=== PATIENT | female | born 1980 | race Caucasian/White ===

== ENCOUNTER → 2017-02-17 10:16 | Outpatient (CLI) | payer OTHER, SELFPAY ==
[2017-02-17 10:39] LABS: Basophils # 0.1 K/mm3 (0-0.2); Basophils % 0.8 % (0.1-2.0); Eosinophils # 0.3 K/mm3 (0.0-0.4); Eosinophils % 2.2 % (0.1-12.0); Hematocrit 46.2 % (37.0-47.0); Lymphocytes # 4.2 K/mm3 (0.7-4.5); Lymphocytes % 36.5 K/mm3 (10-50); Mean Corpuscular HGB Conc 32.6 g/dL (31.8-35.4); Mean Corpuscular Hemoglobin 30.1 pg (27.0-31.2); Mean Corpuscular Volume 92.5 fl (81-99); Monocytes # 0.5 K/mm3 (0.1-1.0); Monocytes % 4.2 % (1.7-9.3); Neutrophils # 6.5 K/mm3 (1.8-7.8); Neutrophils % 56.3 % (37.0-80.0); Platelet Count 354 K/mm3 (142-424); Red Blood Count 4.99 M/mm3 (4.20-5.40); Red Cell Distribution Width 12.7 % (11.5-17.5); White Blood Count 11.6 K/mm3 (4.8-10.8)
[2017-02-17 12:37] LABS: Anion Gap 12.1 mEq/L (5-15); Blood Urea Nitrogen 10 mg/dL (7-18); Carbon Dioxide 29 mmol/L (21.0-32.0); Chloride 105 mmol/L (98-107); Creatinine,Serum 0.94 mg/dL (0.55-1.02); Estimated Glomerular Filt Rate > 60 ml/min (>60); GFR (African American) > 60 ML/MIN (>60); Glucose 90 mg/dL (74-106); Potassium 5.1 mmoL/L (3.5-5.1); Sodium 141 mmol/L (136-145)
== END ==
PROVIDERS: PCP Surgery; Visit Provider Surgery
DX: K43.2 Incisional hernia without obstruction or gangrene (principal)
CPT/HCPCS: 36415; 80048; 85025

== ENCOUNTER 2017-02-18 13:40 | Inpatient (IN) | payer OTHER, SELFPAY ==
[2017-02-18] VITALS (22 sets, daily range): BP systolic 109–153; BP diastolic 58–80; PULSE 61–89; RESP 16–18; TEMP 36.4–43; O2SAT 95–100; BMI 35.6
--- NOTE | 2017-02-18 08:32 | HMH.ANESCL ---
[facility] Anesthesia Checklist - Structural Data Admitted From: Home Planned Operative Procedure/s: lap hernia repair Consent for Planned Operative Procedure(s) Verified: Yes - NPO Status Verified Time NPO: 12:00 - Chart Verification Results Verified: CBC - Additional verifications Patient : No Anesthesia Reactions: No - Airway Assessment C-Spine Mobility Assessed: Yes TMJ Mobility Assessed: Yes (small opening) Dentition: Good Dentition - Neurological Assessment Level of Consciousness: Awake, Alert Hx Seizures: No Numbness or tingling in extremities: No - Psychosocial Assessment Concerns Regarding Surgery: pt had large blood loss w last surgery, talked w her about that - Anesthesia Plan Anesthesia Risk discussed: Yes Anesthesia Plan: Verified ASA Class: II Anesthesia Type: General - Preoperative Comments Pre-Operative Comments: pt very nervous due to complication w last surgery [facility] Anesthesia HX I have reviewed the patient's past medical history: Yes Medical History: Reports:: Kidney Stones Denies:: Diabetes Mellitus Type 1, Diabetes Mellitus Type 2, Seizures Other Medical History: Denies: Blood Transfusion Reaction Other Surgeries: Yes: , Hysterectomy-Total, Hysterectomy-Partial, Tubal Ligation Amputation: No Fractures: No *Family Hx:: Cancer, Hypertension
--- NOTE | 2017-02-18 08:35 | P.PN_ITS ---
[facility] Anesthesia Checklist - Structural Data Admitted From: Home Planned Operative Procedure/s: lap hernia repair Consent for Planned Operative Procedure(s) Verified: Yes - NPO Status Verified Time NPO: 12:00 - Chart Verification Results Verified: CBC - Additional verifications Patient : No Anesthesia Reactions: No - Airway Assessment C-Spine Mobility Assessed: Yes TMJ Mobility Assessed: Yes (small opening) Dentition: Good Dentition - Neurological Assessment Level of Consciousness: Awake, Alert Hx Seizures: No Numbness or tingling in extremities: No - Psychosocial Assessment Concerns Regarding Surgery: pt had large blood loss w last surgery, talked w her about that - Anesthesia Plan Anesthesia Risk discussed: Yes Anesthesia Plan: Verified ASA Class: II Anesthesia Type: General - Preoperative Comments Pre-Operative Comments: pt very nervous due to complication w last surgery [facility] Anesthesia HX I have reviewed the patient's past medical history: Yes Medical History: Reports:: Kidney Stones Denies:: Diabetes Mellitus Type 1, Diabetes Mellitus Type 2, Seizures Other Medical History: Denies: Blood Transfusion Reaction Other Surgeries: Yes: , Hysterectomy-Total, Hysterectomy-Partial, Tubal Ligation Amputation: No Fractures: No *Family Hx:: Cancer, Hypertension
--- NOTE | 2017-02-18 11:10 | SUR.OPER ---
Addendum entered by Hamida Marinelil RN 02/18/17 14:41: 1240-FAMILY UPDATED PER HEENA CHE Original Note: Addendum entered by Hamida Marinelli RN 02/18/17 14:39: 1207-MD BEGAN SMALL BOWEL RESECTION PROCEDURE AT THIS TIME. FAMILY NOTIFIED AND CONSENT UPDATED PER HEENA NAVA. ALL COUNTS VERIFIED AND CORRECT PER HEENA MUNOZ AND YAEL,MICROFILMER. Original Note: Addendum entered by Hamida Marinelli RN 02/18/17 11:39: 1124-FAMILY UPDATED AT THIS TIME PER HEENA CHE Original Note: 1046-MD CONVERTED TO OPEN INCISIONAL HERNIA REPAIR. COUNTS VERIFIED AND CORRECT PER HEENA MUNOZ AND YAEL,MICROFILMER. 1103-FAMILY UPDATED AT THIS TIME PER HEENA CHE
--- NOTE | 2017-02-18 13:32 | P.PN_ITS ---
[facility] Anesthesia Record Part I Intake, IV Amount: 2,500 Estimated blood loss (mL): 75 Urine output (mL): 250 Blood Pressure: 145/79 SaO2: 95 Pulse Rate: 81 Respiratory Rate: 16 Temperature: 97.8 F Patient is:: Drowsy, Nasal O2, Stable Stable to PACU at:: 13:25
--- NOTE | 2017-02-18 13:33 | HMH.ANESII ---
[facility] Anesthesia Record Part II Discharge Time: 13:55 Destination: 2nd floor PACU nurse assessment reviewed?: Yes Patient Condition:: Good Anesthesia Complications:: None
--- NOTE | 2017-02-18 13:38 | HMH.OPNOTE ---
Date of procedure: 02/18/17 Pre-op Diagnosis:: Left lower quadrant abdominal wall hernia Post-op diagnosis:: same Procedure performed:: 1. Diagnostic laparoscopy 2. Small bowel resection 3. Primary repair of abdominal wall hernia Surgeon:: Jose Ramon Cross MD Career And Guidance Counselor(s):: Rosemarie Donnelly Anesthesia: IRA Estimated blood loss (mL): 75 Clinical Note:: Patient is a 36-year-old white female. In August 2015 she had undergone left oophorectomy. Patient states that she had postoperative bleeding and had to return to the operating room at which time she underwent emergent laparotomy Via Pfannenstiel incision for postoperative bleeding. For about the past 4-5 months near the left side of her incision she had signs and symptoms consistent with probable hernia. She described a bulge which had increased in size. She described discomfort. She was recently sent for surgical consultation for presumed incisional hernia and in the office patient had a definite hernia underlying the left lateral aspect of her scar. It was difficult to determine the exact size and character as well as nature and contents of the hernia and I had her undergo CT scan which revealed findings of hernia in the left lower abdomen containing a loop of small bowel without obstruction. It appeared as though the size of the defect measured 4-6 cm. The options were discussed with the patient. She wished to pursue surgical repair. Plan was made for attempted laparoscopic repair with possible open procedure. Operative findings:: Patient had approximately a 5 cm defect in the left lower abdominal wall. She had a couple of loops of small bowel which was incredibly densely adherent to the peritoneum and musculature within the hernia sac. Operative note:: Consent was obtained and patient was taken to the operating room. She was positioned in a supine position. General anesthesia was induced via endotracheal tube. Her abdomen was prepped and draped in the standard surgical fashion. 5 mm left subcostal incision was made and trocar was inserted under laparoscopic visualization as an optical Veress needle. CO2 pneumoperitoneum was then achieved to 15 mmHg. Intraperitoneal contents were visualized. She has some adhesions in the lower abdomen mostly consisting of omentum. 10 mm trocar was inserted in the right upper abdomen under laparoscopic visualization. Ultimately for visualization and dissection of the hernia a couple of additional 5 mm trochars were inserted in the right lower abdomen and suprapubic location. Prolonged dissection carried out taking down omental adhesions from the anterior abdominal wall using laparoscopic Metzenbaum dissection with some blunt dissection. Hernia defect was then encountered the left lower quadrant. However, there were there are 2 loops of small bowel densely adherent to the hernia sac and musculature of the abdominal wall. The small bowel was so densely adherent it was difficult to delineate between the boundary of the small bowel and abdominal wall. Due to concern for possible bowel injury and due to lack of any progressive dissection of the small bowel this was made to convert to an open procedure. Incision was made in the left lower quadrant and the previous surgical scar with elliptical excision of the widened portion of the scar which had some palpable nodularity consistent with scar and fibrosis. The skin ellipse and scar was excised and it was sent with the hernia sac specimen ultimately. Peritoneal cavity was entered. There was very densely adherent small bowel to the hernia sac and abdominal wall musculature within the region of the hernia. Dissection was very difficult due to the profound dense adhesions involving the small bowel. Prolonged careful dissection was performed using Metzenbaum dissection ultimately freeing the small bowel from its attachments to the anterior abdominal wall. However, small bowel appeared somewhat devitalized
[2017-02-18 15:23] LABS: Microscopic,Cath URINE MICROSCOPIC (MICROSCOPIC)
--- NOTE | 2017-02-18 15:37 | PC.NURSE ---
Addendum entered by Genia Mancilla RN 02/18/17 15:44: 02/18/17 While in PACU, pt received Dilaudid 0.5mg IV at 1353 for c/o abd pain rated 10/10. Pt received Dilaudid 0.5mg IV at 1402 for c/o abd pain rated 5/10. Original Note: 02/18/17 1405 Pt O2 room air sat check stable at mid 90's. O2 reapplied for comfort and due to fact pt receiving pain meds.
--- NOTE | 2017-02-18 15:41 | SUR.PHASEI ---
02/18/17 1425 Pt transported to Room 201 2nd floor med/surg per HEENA Grubbs and Phil,HEENA. Pt talking with staff and family during transfer/stable. Pain controlled 04/25. Pt left in care of HEENA Melendez at bedside/stable.
[2017-02-18 15:44] LABS: Appearance,Urine/Cath CLEAR (Clear); Bilirubin,Cath Negative (Negative); Blood, Urine/Cath Negative (Negative); Color,Urine/Cath YELLOW (Yellow); Glucose,Urine/Cath (UA) Negative (Negative); Ketones,Urine/Cath Negative (Negative); Leukocyte Esterase,Cath Negative (Negative); Nitrate,Cath Negative (Negative); PH,Urine/Cath 5.5 (5.0-8.5); Protein,Urine/Cath Negative (Negative); Specific Gravity, Urine/Cath 1.025 (1.005-1.030); Urobilinogen,Cath 0.2 EU/dl (0.2)
[2017-02-18 17:02] LABS: Bacteria,Urine/Cath TRACE /lpf; Squamous Epithelial Ur./Cath Occasional #/hpf (0-5)
[2017-02-19] VITALS (7 sets, daily range): BP systolic 132–175; BP diastolic 75–94; PULSE 74–93; RESP 16–20; TEMP 36.7–37.2; O2SAT 95–98
[2017-02-19 07:01] LABS: Basophils % 0.2 % (0.1-2.0); Eosinophils # 0.1 K/mm3 (0.0-0.4); Eosinophils % 0.5 % (0.1-12.0); Hematocrit 38.5 % (37.0-47.0); Hemoglobin 12.2 g/dL (12.2-16.2); Lymphocytes # 2.7 K/mm3 (0.7-4.5); Lymphocytes % 18.2 K/mm3 (10-50); Mean Corpuscular HGB Conc 31.7 g/dL (31.8-35.4); Mean Corpuscular Hemoglobin 29.1 pg (27.0-31.2); Mean Corpuscular Volume 91.9 fl (81-99); Mean Platelet Volume 8.4 fl (7.4-10.4); Monocytes # 0.8 K/mm3 (0.1-1.0); Monocytes % 5.2 % (1.7-9.3); Neutrophils # 11.1 K/mm3 (1.8-7.8); Neutrophils % 75.9 % (37.0-80.0); Platelet Count 269 K/mm3 (142-424); Red Blood Count 4.19 M/mm3 (4.20-5.40); Red Cell Distribution Width 12.9 % (11.5-17.5); White Blood Count 14.7 K/mm3 (4.8-10.8)
[2017-02-19 07:07] LABS: Anion Gap 7.8 mEq/L (5-15); Blood Urea Nitrogen 9 mg/dL (7-18); Carbon Dioxide 29 mmol/L (21.0-32.0); Chloride 106 mmol/L (98-107); Creatinine Clearance Estimated 142 mg/ml (0-300); Estimated Glomerular Filt Rate > 60 ml/min (>60); GFR (African American) > 60 ML/MIN (>60); Glucose 102 mg/dL (74-106); Potassium 3.8 mmoL/L (3.5-5.1); Sodium 139 mmol/L (136-145)
--- NOTE | 2017-02-19 08:25 | P.PN_ITS ---
Internal Medicine - PN: Subj *Date: 02/19/17 *Time: 08:22 Interval history: Patient complains of abdominal pain. Had some heartburn. PPI added. No nausea. Exam Vital signs and Labs for Last 24 Hours: Temp Pulse Resp BP Pulse Ox 98.2 F 83 20 150/86 95 02/19/17 07:39 02/19/17 07:39 02/19/17 07:39 02/19/17 07:39 02/19/17 07:39 Short CBC 02/19/17 Range/Units 06:10 WBC 14.7 H D (4.8-10.8) K/mm3 Hgb 12.2 (12.2-16.2) g/dL Hct 38.5 (37.0-47.0) % Plt Count 269 (142-424) K/mm3 BMP 02/19/17 06:10 Sodium 139 Potassium 3.8 D Chloride 106 Carbon Dioxide 29 BUN 9 Creatinine 0.80 Glucose 102 Urine 02/18/17 Range/Units 09:58 Urine Color Yellow (Yellow) Urine Appearance Clear (Clear) Urine pH 5.5 (5.0-8.5) Ur Specific [place] 1.025 (1.005-1.030) Urine Protein Negative (Negative) Urine Glucose (UA) Negative (Negative) I & O for Last 24 hours: Intake & Output 02/16/17 02/17/17 02/18/17 02/19/17 11:59 11:59 11:59 11:59 Intake Total 2650 / 2650 Output Total 2170 / 2170 Balance 480 / 480 - *Routine Abdominal Exam Present: soft, normoactive bowel sounds, tenderness, surgical scars Assessment and Plan (1) Ventral hernia Current visit: Yes Status: Acute Category: Surgical Code(s): K43.9 - Ventral hernia without obstruction or gangrene Continue NG for now. Some active appreciable output. DC Hazel catheter. Will add scheduled Toradol for pain.
--- NOTE | 2017-02-19 10:10 | HMH.PHAVTE ---
[facility] Pharmacy VTE Monitoring - Patient Demographics Admission date: 02/18/17 Report Date: 02/19/17 Time: 10:10 Allergies/Adverse Reactions: Sulfa (Sulfonamide Antibiotics) Adverse Reaction (Mild, Verified 02/18/17 07:38) NA-NAUSEA/VOMITING Height: 1.63 m Weight: 94.092 kg Patient Problems: Current Active Problems Ventral hernia (Acute) - VTE Risk Labs: VTE Related Lab Results Hgb 12.2 g/dL (12.2-16.2) 02/19/17 06:10 Hct 38.5 % (37.0-47.0) 02/19/17 06:10 Plt Count 269 K/mm3 (142-424) 02/19/17 06:10 BUN 9 mg/dL (7-18) 02/19/17 06:10 Creatinine 0.80 mg/dL (0.55-1.02) 02/19/17 06:10 Estimated Creat Clear 142 mg/ml (0-300) 02/19/17 06:10 VTE Score: 2 VTE Risk Level: Low Risk - Prophylaxis VTE Prophylaxis Ordered?: Yes Types of VTE Prophylaxis: TEDS Knee High Location of Applied Device: Bilateral Lower Extremeties
--- NOTE | 2017-02-19 16:09 | PC.NURSE ---
Respiration even and non labored. Lungs clear, bowel sounds normal. Shadowing noted to abd incisions but no change from am assessment. NG to low wall suction. Patent and draining brown liquid. Pt reports lower abd pain that is relieved with administration of prn pain meds. Will continue to monitor.
[2017-02-20] VITALS: BP 185/109; PULSE 99; RESP 14; TEMP 36.6; O2SAT 94
--- NOTE | 2017-02-20 02:43 | PC.NURSE ---
PATIENT IS LAYING IN BED AT THIS TIME WITH SPOUSE AT BEDSIDE. HAS ONLY SLEPT FOR ABOUT AN HOUR. HAS ASK FOR PAIN MEDICATION TO BE GIVEN ALESSANDRA WITH ALL PAIN MEDS. IS ON CONTINUOUS LOW WALL SUCTION. DENIES ANY NAUSEA. STATES HAS HEARTBURN AT TIMES. BOWEL SOUNDS ARE HYPOACTIVE. LUNGS ARE CLEAR, RESP EVEN AND NONLABORED. EDUCATED PATIENT ON IMPORTANCE OF MOVING AROUND TO PREVENT PNEUMONIA AND CLOTS.VERBALIZED UNDERSTANDING. ALSO EDUCATED ON IMPORTANCE OF TRYING TO WEAN OFF SOME PAIN MEDS. HAS SCUDS ON AT THIS TIME. IV IS PATENT. BED LOCKED IN LOW POSITION, SIDE RALES UP X 2, CALL LIGHT WITHIN REACH. WILL CONTINUE TO MONITOR.
--- NOTE | 2017-02-20 03:54 | PC.NURSE ---
BP WAS ELEVATED 185/109. IS ON A SCHEDULED LISINOPRIL. STATES SHE IS IN SOME PAIN IN ABDOMEN.. WILL DISCUSS WITH MD ON A.M ROUNDS.
[2017-02-20 04:00] VITALS: BP 185/109; PULSE 99; RESP 16; TEMP 36.6; O2SAT 94
--- NOTE | 2017-02-20 07:42 | HMH.GSPN ---
Subjective Patient reports: no new complaints, still having pain (Patient still having some pain. Passing flatus. No nausea.), flatus Exam Vital signs and Labs for Last 24 Hours: Temp Pulse Resp BP Pulse Ox 97.9 F 99 H 16 185/109 94 L 02/20/17 04:00 02/20/17 04:00 02/20/17 04:00 02/20/17 04:00 02/20/17 04:00 BMP 02/19/17 06:10 Sodium 139 Potassium 3.8 D Chloride 106 Carbon Dioxide 29 BUN 9 Creatinine 0.80 Glucose 102 I & O for Last 24 hours: Intake & Output 02/17/17 02/18/17 02/19/17 02/20/17 11:59 11:59 11:59 11:59 Intake Total 3650 / 3650 4189 / 4189 Output Total 2170 / 2170 1650 / 1650 Balance 1480 / 1480 2539 / 2539 - *Routine Abdominal Exam Present: soft, tenderness, surgical scars Progress Note: A&P (1) Ventral hernia Status: Acute Assessment and plan: Will clamp NG tube. If no nausea after several hours and no major residual will DC NG later. Encourage ambulation. Current Visit: Yes
[2017-02-20 08:30] VITALS: BP 175/101; PULSE 94; RESP 22; TEMP 36.8
--- NOTE | 2017-02-20 08:57 | PC.NURSE ---
rn notified about high bp
--- NOTE | 2017-02-20 11:47 | PC.NURSE ---
PT RESTING IN CHAIR, NG TUBE PULLED, PT TOLERATED WELL. AMBULATED PT TO RESTROOM PT STATED THAT SHE FELT OK WHILE AMBULATING. REASSESSED PT PAIN SHE NOW STATES THAT HER PAIN IS A 6 ON ACID CONDITIONER AND BEFORE WAS AN 8 BUT SAYS THAT THE PAIN MEDICATION SHE HAS BEEN GIVEN IS NOT HELPING. STATES THAT THE DILUIDID THAT SHE GOT EARLIER WAS THE BEST THAT HELPED, IT LASTED LONGER AND HELPED HER TO REST BETTER. STATES THAT HE DOESNT UNDERSTAND WHY THE SCHEDULE OF HER PAIN MEDICINE HAS GOTTEN OFF SCHEDULE, DISCUSSED WITH PT THAT SHE DOESNT HAVE ANY SCHEDULED PAIN MEDICINE OTHER THAN TORADOL, DISCUSSED WITH MD ERNESTO MD WILL CHANGE MEDICINE TO DILUADID 0.5 MG FOR BREAK THROUGH PAIN NEEDED.
[2017-02-20 16:00] VITALS: BP 129/86; PULSE 83; RESP 18; TEMP 36.6; O2SAT 95
--- NOTE | 2017-02-20 19:02 | PC.NURSE ---
Pt resting in bed, states that diluadid does relieve her pain to around 5. Ambulating to and from bathroom with sb assistance. ice chips at bedside. pt denies any heartburn or nausea at this time. Will continue to monitor
[2017-02-20 19:40] VITALS: BP 140/87; PULSE 92; RESP 18; TEMP 37; O2SAT 99
--- NOTE | 2017-02-21 03:51 | PC.NURSE ---
C/O PAIN IN LLQ OF ABDOMEN, MEDICATED PER APR, ON REASSESSMENT FOLLOWING ADMINISTRATION PT NOTED RESTING IN BED WITHOUT ANY FURTHER COMPLAINTS. ON 299 ROUND, SCHEDULED TORADOL WAS DUE AND PT ALSO ASKED FOR PRN DILAUDID. RN EXPLAINED TO PT, LETS TRY THE TORADOL AND THEN IF YOU NEED ADDITIONAL PAIN MEDICATION, WE HAVE OTHER PAIN MEDICATIONS AVAILABLE TO ADMINISTER IF THE SCHEDULED TORADOL DOES NOT WORK. PT REPLIED, I DO NOT WANT TO DO THAT. THE TORADOL DOES NOT HELP ME, THE DILAUDID IS WHAT HELPS ME AND MY PAIN IS AT AN 8 RIGHT NOW. 4 DRESSINGS NOTED ON ABDOMEN. RLQ ABDOMINAL DRESSING NOTED WITH MINIMAL DRIED BLOOD AND THE REMAINING DRESSINGS NOTED CDI. DRESSING ON RLQ CHANGED WITH TELFA AND TEGADERM. ABDOMEN NONDISTENDED, BOWEL SOUNDS HYPERACTIVE IN ALL QUADS, SOFT AND TENDER NOTED IN LLQ. TOLERATED SIPS/ICE CHIPS DIET WELL, PT STATED I CAN'T WAIT TO GET SOMETHING ELSE TO EAT BESIDES ICE/WATER. NO STOOL NOTED, LAST STATED BM THURSDAY AMBULATED IN ROOM INDEPENDENTLY FOR TOILETING PURPOSES, TOLERATED WELL. VSS. WILL CONTINUE TO MONITOR.
[2017-02-21 04:30] VITALS: BP 120/75; PULSE 88; RESP 16; TEMP 36.5; O2SAT 97
--- NOTE | 2017-02-21 07:19 | PC.NURSE ---
Report given to Harrison Gamino WC/SRNA
[2017-02-21 08:00] VITALS: BP 149/95; PULSE 77; RESP 18; TEMP 36.4; O2SAT 98
--- NOTE | 2017-02-21 08:58 | HMH.GSPN ---
Subjective Patient reports: no new complaints, feels better, flatus Narrative: Patient feels much better with NG out. Still passing flatus. No bowel movement. No nausea. Exam Vital signs and Labs for Last 24 Hours: Temp Pulse Resp BP Pulse Ox 97.6 F 77 18 149/95 98 02/21/17 08:00 02/21/17 08:00 02/21/17 08:00 02/21/17 08:00 02/21/17 08:00 I & O for Last 24 hours: Intake & Output 02/18/17 02/19/17 02/20/17 02/21/17 11:59 11:59 11:59 11:59 Intake Total 3650 / 3650 5999 / 5999 3204 / 3204 Output Total 2170 / 2170 1650 / 1650 1200 / 1200 Balance 1480 / 1480 4349 / 4349 2003 / 2003 - *Routine Abdominal Exam Present: soft, tenderness Comments: Incisions clean. Mild to moderate incisional tenderness at the hernia site without recurrence. Progress Note: A&P (1) Ventral hernia Status: Acute Assessment and plan: Will give patient limited sips of clear liquids without carbonated beverages at this time. Recheck labs tomorrow morning. I counseled the patient once again on the appreciable likelihood of future hernia recurrence due to need for primary closure without mesh placement. I also counseled her on smoking cessation to minimize possibility of future hernia recurrence. Current Visit: Yes
[2017-02-21 16:15] VITALS: BP 161/93; PULSE 75; RESP 16; TEMP 36.9; O2SAT 99
--- NOTE | 2017-02-21 17:02 | PC.NURSE ---
1702 - PT HAS BEEN A&Ox3 THIS SHIFT. LLQ ABDOMINAL PAIN RANGES FROM 4 - 7 AND MEDICATED WITH PRN DILAUDID AND LORATAB PER APR. GOAL FOR PAIN MANAGEMENT IS 4 OR BELOW. PT HAS AMBULATED TO BR /S ASSISTANCE. NO BM THIS SHIFT OF THIS DOCUMENTATION. BOWEL SOUNDS PRESENT X4 QUADS. PT DENIES DIFFICULTY /C URINATION. IV INFUSING /S DIFFICULTY VIA (R) AC SITE. NO S/S OF INFECTION/INFILTRATION NOTED. PT HAS TOLERATED PO JUICE AND JELLO /S N/V. WILL CONTINUE TO MONITOR.
[2017-02-21 20:19] VITALS: BP 142/94; PULSE 74; RESP 18; TEMP 36.5; O2SAT 97
[2017-02-22 04:00] VITALS: BP 138/74; PULSE 75; RESP 18; TEMP 36.6; O2SAT 97
--- NOTE | 2017-02-22 06:17 | PC.NURSE ---
C/O PAIN MOST OF THE NIGHT R/T INCISION. 5 INCISIONS NOTED TO ABD, AMIRA INACT, NO S/S OF INFECTION NOTED. LUNG SOUNDS CLEAR, BS ACTIVE IN ALL 4 QAUDS. PT STATES SHE IS PASSING FLATUS BUT NO BM YET. RASH NOTED TO LEFT SIDE OF ABD, PT STATES ITS NOT ITCHY. VSS. CALL LIGHT IN REACH. WILL CONTINUE TO MONITOR.
[2017-02-22 07:17] LABS: Basophils % 0.4 % (0.1-2.0); Eosinophils # 0.6 K/mm3 (0.0-0.4); Eosinophils % 7.5 % (0.1-12.0); Hematocrit 36.9 % (37.0-47.0); Hemoglobin 12.1 g/dL (12.2-16.2); Lymphocytes # 2.9 K/mm3 (0.7-4.5); Lymphocytes % 35.2 K/mm3 (10-50); Mean Corpuscular HGB Conc 32.8 g/dL (31.8-35.4); Mean Corpuscular Hemoglobin 30.1 pg (27.0-31.2); Mean Corpuscular Volume 91.8 fl (81-99); Mean Platelet Volume 8.5 fl (7.4-10.4); Monocytes # 0.4 K/mm3 (0.1-1.0); Monocytes % 4.6 % (1.7-9.3); Neutrophils # 4.4 K/mm3 (1.8-7.8); Neutrophils % 52.4 % (37.0-80.0); Platelet Count 267 K/mm3 (142-424); Red Blood Count 4.02 M/mm3 (4.20-5.40); Red Cell Distribution Width 12.8 % (11.5-17.5); White Blood Count 8.3 K/mm3 (4.8-10.8)
--- NOTE | 2017-02-22 07:19 | PC.NURSE ---
Report given to Harrison Gamino WC/SRNA
[2017-02-22 07:21] LABS: Anion Gap 10.7 mEq/L (5-15); Blood Urea Nitrogen 6 mg/dL (7-18); Carbon Dioxide 30 mmol/L (21.0-32.0); Chloride 105 mmol/L (98-107); Creatinine Clearance Estimated 133 mL/min (0-300); Creatinine,Serum 0.76 mg/dL (0.55-1.02); Estimated Glomerular Filt Rate > 60 ml/min (>60); GFR (African American) > 60 ML/MIN (>60); Glucose 88 mg/dL (74-106); Potassium 3.7 mmoL/L (3.5-5.1); Sodium 142 mmol/L (136-145)
[2017-02-22 08:00] VITALS: BP 133/81; PULSE 68; RESP 18; TEMP 36.4; O2SAT 97
--- NOTE | 2017-02-22 08:10 | PC.NURSE ---
REPORT GIVEN Larry HALL RN
--- NOTE | 2017-02-22 09:59 | HMH.GSPN ---
Subjective Patient reports: no new complaints, flatus, no bowel movement Narrative: Patient feels well. According to the nurses report she is still asking for pain medication as soon as it is due. Passing gas. No bowel movement. Tolerating sips of clears. She does not a rash on her abdomen, which is asymptomatic. Exam Vital signs and Labs for Last 24 Hours: Temp Pulse Resp BP Pulse Ox 97.6 F 68 18 133/81 97 02/22/17 08:00 02/22/17 08:00 02/22/17 08:00 02/22/17 08:00 02/22/17 08:00 Laboratory Results - last 24 hr 02/22/17 06:00: WBC 8.3 D, RBC 4.02 L, Hgb 12.1 L, Hct 36.9 L, MCV 91.8, MCH 30.1, MCHC 32.8, RDW 12.8, Plt Count 267, MPV 8.5, Neut % (Auto) 52.4, Lymph % (Auto) 35.2, [place] % (Auto) 4.6, Eos % (Auto) 7.5, Baso % (Auto) 0.4, Neut # (Auto) 4.4, Lymph # (Auto) 2.9, [place] # (Auto) 0.4, Eos # (Auto) 0.6 H, Baso # (Auto) 0.0 02/22/17 06:00: Sodium 142, Potassium 3.7, Chloride 105, Carbon Dioxide 30, Anion Gap 10.7, BUN 6 L D, Creatinine 0.76, Estimated Creat Clear 133, Estimated GFR > 60, Est GFR ( Amer) > 60, Glucose 88 I & O for Last 24 hours: Intake & Output 02/19/17 02/20/17 02/21/17 02/22/17 11:59 11:59 11:59 11:59 Intake Total 3650 / 3650 5999 / 5999 3204 / 3204 840 / 840 Output Total 2170 / 2170 1650 / 1650 1200 / 1200 Balance 1480 / 1480 4349 / 4349 2003 840 / 840 - Constitutional no acute distress Comments: Sleeping comfortably. - *Routine Abdominal Exam Present: soft, surgical scars Comments: Somewhat hypoactive bowel sounds. Abdomen is soft and nontender. Incisions clean. Progress Note: A&P (1) Ventral hernia Status: Acute Assessment and plan: Plan to advance to clear liquid diet. Will decrease IV fluids. Increase Lortab and limit Dilaudid for severe breakthrough pain. Increase ambulation. Current Visit: Yes
--- NOTE | 2017-02-22 10:05 | P.PN_ITS ---
Subjective Patient reports: no new complaints, flatus, no bowel movement Narrative: Patient feels well. According to the nurses report she is still asking for pain medication as soon as it is due. Passing gas. No bowel movement. Tolerating sips of clears. She does not a rash on her abdomen, which is asymptomatic. Exam Vital signs and Labs for Last 24 Hours: Temp Pulse Resp BP Pulse Ox 97.6 F 68 18 133/81 97 02/22/17 08:00 02/22/17 08:00 02/22/17 08:00 02/22/17 08:00 02/22/17 08:00 Laboratory Results - last 24 hr 02/22/17 06:00: WBC 8.3 D, RBC 4.02 L, Hgb 12.1 L, Hct 36.9 L, MCV 91.8, MCH 30.1, MCHC 32.8, RDW 12.8, Plt Count 267, MPV 8.5, Neut % (Auto) 52.4, Lymph % ( Auto) 35.2, [place] % (Auto) 4.6, Eos % (Auto) 7.5, Baso % (Auto) 0.4, Neut # (Auto ) 4.4, Lymph # (Auto) 2.9, [place] # (Auto) 0.4, Eos # (Auto) 0.6 H, Baso # (Auto) 0.0 02/22/17 06:00: Sodium 142, Potassium 3.7, Chloride 105, Carbon Dioxide 30, Anion Gap 10.7, BUN 6 L D, Creatinine 0.76, Estimated Creat Clear 133, Estimated GFR > 60, Est GFR ( Amer) > 60, Glucose 88 I & O for Last 24 hours: Intake & Output 02/19/17 02/20/17 02/21/17 02/22/17 11:59 11:59 11:59 11:59 Intake Total 3650 / 3650 5999 / 5999 3204 / 3204 840 / 840 Output Total 2170 / 2170 1650 / 1650 1200 / 1200 Balance 1480 / 1480 4349 / 4349 2003 840 / 840 - Constitutional no acute distress Comments: Sleeping comfortably. - *Routine Abdominal Exam Present: soft, surgical scars Comments: Somewhat hypoactive bowel sounds. Abdomen is soft and nontender. Incisions clean. Progress Note: A&P (1) Ventral hernia Status: Acute Assessment and plan: Plan to advance to clear liquid diet. Will decrease IV fluids. Increase Lortab and limit Dilaudid for severe breakthrough pain. Increase ambulation. Current Visit: Yes
--- NOTE | 2017-02-22 14:45 | PC.NURSE ---
note entered on behalf of janae palm rn r.t downtime at time event occurred pt ambulated in the valadez with at 1445
[2017-02-22 16:00] VITALS: BP 145/93; PULSE 87; RESP 18; TEMP 36.8; O2SAT 96
--- NOTE | 2017-02-22 19:15 | PC.NURSE ---
REPORT RECEIVED FROM [email or web address].WHE
[2017-02-22 20:00] VITALS: BP 150/94; PULSE 74; RESP 18; TEMP 36.4; O2SAT 100
[2017-02-22 20:10] VITALS: O2SAT 100
[2017-02-23 04:00] VITALS: BP 140/80; PULSE 73; RESP 17; TEMP 36.6; O2SAT 99
--- NOTE | 2017-02-23 05:44 | PC.NURSE ---
PT C/O PAIN X2 THIS SHIFT ASKING FOR HYDROCODONEX2, ALSO RECEIVING SCHEDULED TORADOL. PT AMBULATED DOWN CHUN AND TO OUTSIDE WITHOUT DIFFICULTY. TWICE THIS SHIFT. PT STILL HAS FINE RASH ON ABDOMEN AND UNDER BREAST. STATES ITCHES ON AND OFF. STATES HAS USED LOTION AND THAT SHE MADE MD AWARE YESTERDAY. IV SECURE AND PATENT. TOLERATING FULL LIQUIDS WELL. HAD BM TODAY. ABD INCISION AND 3 LAP INCISIONS ALL C/D/I. PT STABLE. WILL CONTINUE TO MONITOR. REPORT TO BE GIVEN TO ONCOMING NURSE.
--- NOTE | 2017-02-23 07:16 | PC.NURSE ---
REPORT GIVEN TO Monika HEWITT
[2017-02-23 07:33] VITALS: BP 160/98; PULSE 79; RESP 20; TEMP 36.7; O2SAT 100
--- NOTE | 2017-02-23 07:51 | HMH.GSPN ---
Subjective Patient reports: no new complaints, feels better, bowel movement (Patient has been partaking in full liquid diet without difficulty. Had bowel movement.) Exam Vital signs and Labs for Last 24 Hours: Temp Pulse Resp BP Pulse Ox 98.1 F 79 20 160/98 100 02/23/17 07:33 02/23/17 07:33 02/23/17 07:33 02/23/17 07:33 02/23/17 07:33 I & O for Last 24 hours: Intake & Output 02/20/17 02/21/17 02/22/17 02/23/17 11:59 11:59 11:59 11:59 Intake Total 5999 / 5999 3204 / 3204 840 / 840 1631 / 1631 Output Total 1650 / 1650 1200 / 1200 Balance 4349 / 4349 2003 840 / 840 1631 / 1631 - Constitutional no acute distress - *Routine Abdominal Exam Present: soft, surgical scars Progress Note: A&P (1) Ventral hernia Status: Acute Assessment and plan: Probable discharge home later today. Current Visit: Yes
--- NOTE | 2017-02-23 08:50 | HMH.DCSUM ---
General - General Admission date: 02/18/17 Discharge date: 02/23/17 HPI HPI: Patient is a 36-year-old white female. She had undergone apparent laparoscopic oophorectomy in August 2015 and required return to the operating room for bleeding which required open procedure through low transverse incision. According to the patient, over a year after her surgery she had developed signs and symptoms consistent with probable hernia in the region of the left lower quadrant. This was characterized by bulge and discomfort. Ultimately the patient was sent for surgical consultation and was seen in the office. She had clinical findings consistent with hernia in the left lower quadrant. She underwent CT scan which confirmed hernia. The options were discussed with the patient and she wished to pursue surgical intervention. Various options were discussed and plan was made for attempt at laparoscopic with possible open repair. Plan most likely for admission regardless postoperatively. Objective Vital signs: Temp Pulse Resp BP Pulse Ox 98.1 F 79 20 160/98 100 02/23/17 07:33 02/23/17 07:33 02/23/17 07:33 02/23/17 07:33 02/23/17 07:33 - *Routine Respiratory Exam Present: CTA bilaterally - *Routine Cardiovascular Exam Present: RRR - *Routine Abdominal Exam Present: soft, hernia Hospital Course Hospital Course: Patient was taken to the operating room on 02/18/17. She underwent diagnostic laparoscopy. She was found to have a hernia in the left lower quadrant. There contained 1 or 2 loops of bowel. These were densely adherent to the muscle and peritoneum within the hernia and dissection laparoscopically was not possible. Therefore decision was made for conversion to open procedure which was performed overlying the hernia. With great difficulty the loop of small bowel which was adherent within the hernia sac and adjacent muscle of the abdominal wall was ultimately freed from its attachments. However, due to the operative trauma necessary to free the bowel it was felt that the best plan to prevent possible future stricture or perforation of the segment would be for limited segmental resection. Short segment of bowel was resected at the time of surgery. Due to the appreciable potential for mesh infection in light of the bowel involvement if mesh was placed and due to subsequent high morbidity plan was made for primary repair without mesh placement with the understanding that she could, in the future, developed hernia recurrence. Hernia was repaired primarily. Please see operative dictation for complete details. She was admitted postoperatively. She did have a nasogastric tube placed intraoperatively. She remained on an n.p.o. status. On postoperative day #1 her Hazel catheter was removed and she voided without difficulty. Patient was having significant pain issues and Toradol scheduled was added to her pain medication regimen. On postoperative day #2 her nasogastric tube was removed. She continued to pass flatus. She had no nausea with the nasogastric tube out and was given sips of clear liquids on postoperative day #3. Due to patient's continued complaints of pain she was given Lortab for moderate pain and her morphine was switched to Dilaudid for breakthrough pain. She still continued with the Toradol scheduled. Patient was counseled on smoking cessation due to the fact that smoking would likely increase the hernia recurrence rate in the future. She continued to do well and on postoperative day #4 she was advanced to clear liquid diet which was quickly advanced to full liquid diet. She had a bowel movement and tolerated full liquid diet without difficulty. By postoperative day #5 she was doing quite well and ready for discharge. Arrangements were made for discharge at this time. Prior to discharge every other staple from her open incision is to be removed. She is given a new prescription for Lortab 5 mg (#25) for pain. She is g
--- NOTE | 2017-02-23 08:54 | P.DS_ITS ---
General - General Admission date: 02/18/17 Discharge date: 02/23/17 HPI HPI: Patient is a 36-year-old white female. She had undergone apparent laparoscopic oophorectomy in August 2015 and required return to the operating room for bleeding which required open procedure through low transverse incision. According to the patient, over a year after her surgery she had developed signs and symptoms consistent with probable hernia in the region of the left lower quadrant. This was characterized by bulge and discomfort. Ultimately the patient was sent for surgical consultation and was seen in the office. She had clinical findings consistent with hernia in the left lower quadrant. She underwent CT scan which confirmed hernia. The options were discussed with the patient and she wished to pursue surgical intervention. Various options were discussed and plan was made for attempt at laparoscopic with possible open repair. Plan most likely for admission regardless postoperatively. Objective Vital signs: Temp Pulse Resp BP Pulse Ox 98.1 F 79 20 160/98 100 02/23/17 07:33 02/23/17 07:33 02/23/17 07:33 02/23/17 07:33 02/23/17 07:33 - *Routine Respiratory Exam Present: CTA bilaterally - *Routine Cardiovascular Exam Present: RRR - *Routine Abdominal Exam Present: soft, hernia Hospital Course Hospital Course: Patient was taken to the operating room on 02/18/17. She underwent diagnostic laparoscopy. She was found to have a hernia in the left lower quadrant. There contained 1 or 2 loops of bowel. These were densely adherent to the muscle and peritoneum within the hernia and dissection laparoscopically was not possible. Therefore decision was made for conversion to open procedure which was performed overlying the hernia. With great difficulty the loop of small bowel which was adherent within the hernia sac and adjacent muscle of the abdominal wall was ultimately freed from its attachments. However, due to the operative trauma necessary to free the bowel it was felt that the best plan to prevent possible future stricture or perforation of the segment would be for limited segmental resection. Short segment of bowel was resected at the time of surgery. Due to the appreciable potential for mesh infection in light of the bowel involvement if mesh was placed and due to subsequent high morbidity plan was made for primary repair without mesh placement with the understanding that she could, in the future, developed hernia recurrence. Hernia was repaired primarily. Please see operative dictation for complete details. She was admitted postoperatively. She did have a nasogastric tube placed intraoperatively. She remained on an n.p.o. status. On postoperative day #1 her Hazel catheter was removed and she voided without difficulty. Patient was having significant pain issues and Toradol scheduled was added to her pain medication regimen. On postoperative day #2 her nasogastric tube was removed. She continued to pass flatus. She had no nausea with the nasogastric tube out and was given sips of clear liquids on postoperative day #3. Due to patient's continued complaints of pain she was given Lortab for moderate pain and her morphine was switched to Dilaudid for breakthrough pain. She still continued with the Toradol scheduled. Patient was counseled on smoking cessation due to the fact that smoking would likely increase the hernia recurrence rate in the future. She continued to do well and on postoperative day #4 she was advanced to clear liquid diet which was quickly advanced to full liquid diet. She had a bowel movement and tolerated full liquid diet
--- NOTE | 2017-02-23 11:54 | PC.NURSE ---
EMAR downtime documetation for 02/22/17 from Downtime documentation forms for Larry Motley RN per Kalyn Gutiérrez RN.
--- NOTE | 2017-02-23 12:26 | PC.NURSE ---
I AM DOCUMENTING INFORMATION PROVIDED BY ALEXIS LERMA ON DOWNTIME FORMS FROM 02/22/17.
== END 2017-02-23 12:15 | disposition home or self-care (01) | DRG 331 ==
LOC: 2ND 02-19 10:48
PROVIDERS: Admitting Provider Surgery; Family Provider Emergency Medicine; PCP Emergency Medicine; Visit Provider Surgery
PROC: 0WQF4ZZ Repair Abdominal Wall, Percutaneous Endoscopic Approach (ICD-10-PCS; principal; 2017-02-18 08:45)
DX: K43.0 Incisional hernia with obstruction, without gangrene (principal)
CPT/HCPCS: 49561; 44120; 36415; 80048; 81001; 85025; 94760; 94761; 96375; J0131; J2270; J2405; J2710

== ENCOUNTER 2017-03-04 00:35 | Emergency (ER) | payer OTHER, SELFPAY ==
[2017-03-04 00:40] VITALS: BP 149/113; PULSE 95; RESP 12; TEMP 36.9; O2SAT 97; BMI 31.7
--- NOTE | 2017-03-04 01:03 | CT_ITS ---
CT abdomen pelvis w con CLINICAL INDICATION: Lower abdominal pain left greater than right. Recent abdominal surgery with bowel resection ITS.REASON: ABDOMINAL PAIN ORDERING PHYSICIAN: Brady Reddy MD PATIENT AGE: 36 years COMPARISON: 01/15/2017 TECHNIQUE: Axial images obtained with sagittal and coronal reformats. PROCEDURE: Oral Contrast: Gastroview IV Contrast: 75 mL [id number]. FINDINGS: Lower thorax: No acute finding ABDOMEN: Liver: Fatty infiltration of the liver Gallbladder: Status post cholecystectomy without ductal dilatation Pancreas: No masses or peripancreatic fluid collections. Spleen: Unremarkable. Adrenals: Unremarkable Kidneys/ureters: No masses. No renal calculi. No hydronephrosis. No perinephric fluid collections. No ureteral dilatation or obvious ureteral calculi. Stomach bowel: Nondistended. No obvious mass or thickening. Appendix: No evidence of appendicitis. PELVIS: Reproductive: Status post hysterectomy Bladder: Nondistended. No obvious stones or masses. ABDOMEN & PELVIS: Peritoneum: No abnormal fluid collections. No obvious inflammatory changes. No free air. Lymph nodes: No enlarged lymph nodes apparent. Vasculature: No evidence of abdominal aortic aneurysm. No retroperitoneal hemorrhage evident. Bones: No acute fracture Soft tissues: 8.5 x 2.8 x 6.4 cm fluid collection is subcutaneous soft tissues in the left lower abdomen at the site of recent hernia repair. No evidence of recurrent abdominal wall hernia. No perceptible wall or enhancement. No internal gas within the collection. IMPRESSION: Fluid collection in the left lower quadrant in the subcutaneous soft tissues at the site of recent hernia repair consistent with seroma. No evidence of recurrent hernia or other acute anomalies.
--- NOTE | 2017-03-04 01:05 | HMH.EDGENADL ---
ED Disposition Clinical Impression: Seroma after procedure Disposition: Home, Self-Care Condition on Discharge: Good Instructions: DI for Acute Pain -- Adult Additional Instructions: call surg this am Referrals: Brady Reddy MD [Primary Care Provider] - - Critical Care Critical Care Time: No Attestation: On 03/04/17, the high probability of a clinically significant, sudden or life threatening deterioration of the following system(s) required my full and direct attention, intervention and personal management. The time I documented below is in addition to time spent performing reported procedures but includes the following listed in this critical care notation. Medical Decision Making - Medical Records Medical records reviewed: Yes: I reviewed the patient's medical records. Vital Signs: 03/04/17 00:40 03/04/17 02:19 03/04/17 03:24 Temperature 98.5 F Temperature Source Oral Pulse Rate [Right Brachial] 95 H 77 78 Respiratory Rate 12 12 18 Blood Pressure [Right Arm] 149/113 132/74 139/82 Blood Pressure Mean [Right Arm] 125 93 101 Blood Pressure Source [Right Arm] Automatic Cuff Automatic Cuff Automatic Cuff Blood Pressure Position [Right Arm] Supine Supine Supine 02 Sat by Pulse Oximetry 97 97 98 Oxygen Delivery Method Room Air Room Air Room Air - Lab Data Lab results reviewed: Yes: I reviewed the patient's lab results. Lab Results 03/04/17 01:05: WBC 8.2, RBC 4.43, Hgb 13.6, Hct 40.1, MCV 90.5, MCH 30.6, MCHC 33.8, RDW 12.9, Plt Count 329, MPV 7.9, Neut % (Auto) 45.6, Lymph % (Auto) 43.5, [place] % (Auto) 3.7, Eos % (Auto) 6.3, Baso % (Auto) 0.9, Neut # (Auto) 3.7, Lymph # (Auto) 3.6, [place] # (Auto) 0.3, Eos # (Auto) 0.5 H, Baso # (Auto) 0.1 03/04/17 01:05: Sodium 140, Potassium 4.2, Chloride 106, Carbon Dioxide 28, Anion Gap 10.2, BUN 9, Creatinine 0.84, Estimated Creat Clear 120, Estimated GFR 76, Est GFR ( Amer) 92, Glucose 94, Calcium 9.0, Total Bilirubin 0.2, AST 17, ALT 27, Alkaline Phosphatase 92, Total Protein 7.1, Albumin 3.6, Globulin 3.5 H, Albumin/Globulin Ratio 1.0 L, Amylase 39 03/04/17 01:05: Lipase 468 H 03/04/17 02:10: Urine Color Yellow, Urine Appearance Clear, Urine pH 6.0, Ur Specific [place] 1.010, Urine Protein Negative, Urine Glucose (UA) Negative, Urine Ketones Negative, Urine Blood Negative, Urine Nitrate Positive A, Urine Bilirubin Negative, Urine Urobilinogen 0.2, Ur Leukocyte Esterase 1+ A, Urine WBC 5-10, Ur Squamous Epith Cells 5-10, Urine Bacteria 1+, Urine Mucus 1+ Result diagrams: 03/04/17 01:05 03/04/17 01:05 Orders (Tests/Meds): ED MEDICATIONS Discontinued Medications Generic Name Dose Route Start Last Admin Trade Name Freq PRN Reason Stop Dose Admin Diatrizoate Meglum/Diatrizoate Sod 30 ml 03/04/17 01:10 03/04/17 01:14 Gastrografin 66%-10% 30ml PO 03/04/17 01:11 30 ml ONCE ONE Administration Hydromorphone HCl 1 mg 03/04/17 01:11 03/04/17 01:15 Dilaudid 2mg/Ml Syringe IV 03/04/17 01:12 1 mg ONCE ONE Administration Ketorolac Tromethamine 30 mg 03/04/17 03:48 03/04/17 03:59 Toradol 30mg/Ml Vial IV 03/04/17 03:49 30 mg ONCE ONE Administration Lactated Ringer's 0 ml 03/04/17 01:10 03/04/17 01:15 Lactated Ringer's 1000 Ml Bag IV 03/04/17 01:11 1,000 ml BOLUS ONE Administration Ondansetron HCl 4 mg 03/04/17 01:10 03/04/17 01:16 Zofran 4mg/2ml Vial IV 03/04/17 01:11 4 mg ONCE ONE Administration ORDERS Category Date Time Status CT abdomen pelvis w con Stat Cat Scan 03/04/17 01:03 Ordered Urine Culture Stat Micro 03/04/17 02:10 Received - CT Data CT Scan: Abdomen, Pelvis Time Received: 03:[address] Reviewed: Yes: I have viewed the radiologist's interpretation Preliminary Findings: Abnormal (seroma) - Physician Consults Physician Consulted: page Reason -: Pt condition - Dimitrios Inquiry Pt receiving controlled substance: No General Adult HPI - General Chief complaint:
--- NOTE | 2017-03-04 01:08 | ED_ITS ---
ED Disposition Clinical Impression: Seroma after procedure Disposition: Home, Self-Care Condition on Discharge: Good Instructions: DI for Acute Pain -- Adult Additional Instructions: call surg this am Referrals: Brady Reddy MD [Primary Care Provider] - - Critical Care Critical Care Time: No Attestation: On 03/04/17, the high probability of a clinically significant, sudden or life threatening deterioration of the following system(s) required my full and direct attention, intervention and personal management. The time I documented below is in addition to time spent performing reported procedures but includes the following listed in this critical care notation. Medical Decision Making - Medical Records Medical records reviewed: Yes: I reviewed the patient's medical records. Vital Signs: 03/04/17 00:40 03/04/17 02:19 03/04/17 03:24 Temperature 98.5 F Temperature Source Oral Pulse Rate [Right Brachial] 95 H 77 78 Respiratory Rate 12 12 18 Blood Pressure [Right Arm] 149/113 132/74 139/82 Blood Pressure Mean [Right Arm] 125 93 101 Blood Pressure Source [Right Arm] Automatic Cuff Automatic Cuff Automatic Cuff Blood Pressure Position [Right Arm] Supine Supine Supine 02 Sat by Pulse Oximetry 97 97 98 Oxygen Delivery Method Room Air Room Air Room Air - Lab Data Lab results reviewed: Yes: I reviewed the patient's lab results. Lab Results 03/04/17 01:05: WBC 8.2, RBC 4.43, Hgb 13.6, Hct 40.1, MCV 90.5, MCH 30.6, MCHC 33.8, RDW 12.9, Plt Count 329, MPV 7.9, Neut % (Auto) 45.6, Lymph % (Auto) 43.5 , [place] % (Auto) 3.7, Eos % (Auto) 6.3, Baso % (Auto) 0.9, Neut # (Auto) 3.7, Lymph # (Auto) 3.6, [place] # (Auto) 0.3, Eos # (Auto) 0.5 H, Baso # (Auto) 0.1 03/04/17 01:05: Sodium 140, Potassium 4.2, Chloride 106, Carbon Dioxide 28, Anion Gap 10.2, BUN 9, Creatinine 0.84, Estimated Creat Clear 120, Estimated GFR 76, Est GFR ( Amer) 92, Glucose 94, Calcium 9.0, Total Bilirubin 0.2 , AST 17, ALT 27, Alkaline Phosphatase 92, Total Protein 7.1, Albumin 3.6, Globulin 3.5 H, Albumin/Globulin Ratio 1.0 L, Amylase 39 03/04/17 01:05: Lipase 468 H 03/04/17 02:10: Urine Color Yellow, Urine Appearance Clear, Urine pH 6.0, Ur Specific [place] 1.010, Urine Protein Negative, Urine Glucose (UA) Negative, Urine Ketones Negative, Urine Blood Negative, Urine Nitrate Positive A, Urine Bilirubin Negative, Urine Urobilinogen 0.2, Ur Leukocyte Esterase 1+ A, Urine WBC 5-10, Ur Squamous Epith Cells 5-10, Urine Bacteria 1+, Urine Mucus 1+ Result diagrams: 03/04/17 01:05 03/04/17 01:05 Orders (Tests/Meds): ED MEDICATIONS Discontinued Medications Generic Name Dose Route Start Last Admin Trade Name Freq PRN Reason Stop Dose Admin Diatrizoate Meglum/Diatrizoate Sod 30 ml 03/04/17 01:10 03/04/17 01:14 Gastrografin 66%-10% 30ml PO 03/04/17 01:11 30 ml ONCE ONE Administration Hydromorphone HCl 1 mg 03/04/17 01:11 03/04/17 01:15 Dilaudid 2mg/Ml Syringe IV 03/04/17 01:12 1 mg ONCE ONE Administration Ketorolac Tromethamine 30 mg 03/04/17 03:48 03/04/17 03:59 Toradol 30mg/Ml Vial IV 03/04/17 03:49 30 mg ONCE ONE Administration Lactated Ringer's 0 ml 03/04/17 01:10 03/04/17 01:15 Lactated Ringer's 1000 Ml Bag IV 03/04/17 01:11 1,000 ml BOLUS ONE Administration Ondansetron HCl 4 mg 03/04/17 01:10 03/04/17 01:16 Zofr
[2017-03-04 01:12] LABS: Basophils # 0.1 K/mm3 (0-0.2); Basophils % 0.9 % (0.1-2.0); Eosinophils # 0.5 K/mm3 (0.0-0.4); Eosinophils % 6.3 % (0.1-12.0); Hematocrit 40.1 % (37.0-47.0); Hemoglobin 13.6 g/dL (12.2-16.2); Lymphocytes # 3.6 K/mm3 (0.7-4.5); Lymphocytes % 43.5 K/mm3 (10-50); Mean Corpuscular HGB Conc 33.8 g/dL (31.8-35.4); Mean Corpuscular Hemoglobin 30.6 pg (27.0-31.2); Mean Corpuscular Volume 90.5 fl (81-99); Mean Platelet Volume 7.9 fl (7.4-10.4); Monocytes # 0.3 K/mm3 (0.1-1.0); Monocytes % 3.7 % (1.7-9.3); Neutrophils # 3.7 K/mm3 (1.8-7.8); Neutrophils % 45.6 % (37.0-80.0); Platelet Count 329 K/mm3 (142-424); Red Blood Count 4.43 M/mm3 (4.20-5.40); Red Cell Distribution Width 12.9 % (11.5-17.5); White Blood Count 8.2 K/mm3 (4.8-10.8)
--- NOTE | 2017-03-04 01:19 | PC.NURSE ---
GASTROGRAPHIN PO COMPLETE. RADIOLOGY NOTIFIED
[2017-03-04 01:24] LABS: Alanine Aminotransferase 27 U/L (12-78); Albumin Level 3.6 gm/dL (3.4-5.0); Alkaline Phosphatase 92 U/L (46-116); Amylase 39 U/L (25-125); Anion Gap 10.2 mEq/L (5-15); Aspartate Amino Transferase 17 U/L (15-37); Bilirubin,Total 0.2 mg/dL (0.2-1.0); Blood Urea Nitrogen 9 mg/dL (7-18); Carbon Dioxide 28 mmol/L (21.0-32.0); Chloride 106 mmol/L (98-107); Creatinine Clearance Estimated 120 mL/min (0-300); Creatinine,Serum 0.84 mg/dL (0.55-1.02); Estimated Glomerular Filt Rate 76 ml/min (>60); GFR (African American) 92 ML/MIN (>60); Globulin 3.5 gm/dl (1.3-3.2); Glucose 94 mg/dL (74-106); Potassium 4.2 mmoL/L (3.5-5.1); Sodium 140 mmol/L (136-145); Total Protein,Serum 7.1 gm/dL (6.4-8.2)
[2017-03-04 01:47] LABS: Lipase 468 u/L (73-393)
[2017-03-04 02:19] VITALS: BP 132/74; PULSE 77; RESP 12; O2SAT 97
[2017-03-04 02:20] LABS: Appearance,Urine Clear (Clear); Bilirubin,Urine Negative (Negative); Blood, Urine Negative (Negative); Color,Urine Yellow (Yellow); Glucose,Urine (UA) Negative (Negative); Ketones,Urine Negative (Negative); Leukocyte Esterase,Urine 1+ (Negative); Microscopic, Urine URINE MICROSCOPIC (MICROSCOPIC); Nitrate,Urine Positive (Negative); Protein,Urine Negative (Negative); Urobilinogen,Urine 0.2 EU/dl (0.2)
[2017-03-04 02:24] LABS: Bacteria,Urine 1+ /lpf
[2017-03-04 02:25] LABS: Mucus,Urine 1+ /lpf
[2017-03-04 03:24] VITALS: BP 139/82; PULSE 78; RESP 18; O2SAT 98
[2017-03-04 04:31] VITALS: BP 132/78; PULSE 68; RESP 18; TEMP 37.1; O2SAT 96
== END 2017-03-04 04:33 | disposition home or self-care (01) ==
PROVIDERS: Emergency Provider Emergency Medicine; Family Provider Emergency Medicine; PCP Emergency Medicine
DX: K91.873 Postprocedural seroma of a digestive system organ or structure following other procedure (principal); Z79.899 Other long term (current) drug therapy; I10 Essential (primary) hypertension; F17.210 Nicotine dependence, cigarettes, uncomplicated
CPT/HCPCS: 74177; 80053; 81001; 82150; 83690; 85025; 87086; 96360; 96365; 96375; 96376; 99284; J2405; Q9967

== ENCOUNTER 2017-03-04 14:27 | Emergency (ER) | payer OTHER, SELFPAY ==
[2017-03-04 14:47] VITALS: BP 134/91; PULSE 84; RESP 20; TEMP 37.1; O2SAT 100; BMI 31.7
[2017-03-04 15:27] LABS: Basophils # 0.1 K/mm3 (0-0.2); Eosinophils # 0.5 K/mm3 (0.0-0.4); Eosinophils % 5.5 % (0.1-12.0); Hematocrit 41.5 % (37.0-47.0); Hemoglobin 13.6 g/dL (12.2-16.2); Lymphocytes # 3.1 K/mm3 (0.7-4.5); Mean Corpuscular HGB Conc 32.9 g/dL (31.8-35.4); Mean Corpuscular Hemoglobin 29.6 pg (27.0-31.2); Mean Corpuscular Volume 90.1 fl (81-99); Monocytes # 0.3 K/mm3 (0.1-1.0); Monocytes % 3.2 % (1.7-9.3); Neutrophils # 4.4 K/mm3 (1.8-7.8); Neutrophils % 53.3 % (37.0-80.0); Platelet Count 346 K/mm3 (142-424); Red Blood Count 4.61 M/mm3 (4.20-5.40); Red Cell Distribution Width 12.8 % (11.5-17.5); White Blood Count 8.3 K/mm3 (4.8-10.8)
--- NOTE | 2017-03-04 15:33 | HMH.EDABDPAI ---
ED Disposition Clinical Impression: Postoperative abdominal pain, Seroma after procedure Disposition: Home, Self-Care Condition on Discharge: Good Instructions: How to Care for a Surgical Wound Prescriptions: Hydrocod/Acet 5/325 mg [[place] 5/325mg tablet] 1 - 2 tab PO Q6HP PRN #25 tab PRN Reason: Moderate Pain cephALEXin [Keflex 500mg Cap] 500 mg PO QID #28 cap Etodolac [Etodolac 200mg Cap] 200 mg PO TID PRN #30 cap PRN Reason: Moderate Pain Hydrocodone/Acetaminophen [Lortab 10/325mg tablet] 1 tab PO BID #4 tab Referrals: Brady Reddy MD [Primary Care Provider] - Time of Disposition: 15:35 - Critical Care Critical Care Time: No Attestation: On 03/04/17, the high probability of a clinically significant, sudden or life threatening deterioration of the following system(s) required my full and direct attention, intervention and personal management. The time I documented below is in addition to time spent performing reported procedures but includes the following listed in this critical care notation. Medical Decision Making - Medical Records Medical records reviewed: Yes: I reviewed the patient's medical records. Vital Signs: 03/04/17 14:47 03/04/17 16:10 Temperature 98.8 F 98.1 F Temperature Source Temporal Artery Scan Oral Pulse Rate 80 Pulse Rate [Brachial] 84 Respiratory Rate 20 16 Blood Pressure 130/72 Blood Pressure [Right Arm] 134/91 Blood Pressure Mean [Right Arm] 105 Blood Pressure Source Automatic Cuff Blood Pressure Source [Right Arm] Automatic Cuff Blood Pressure Position [Right Arm] Sitting 02 Sat by Pulse Oximetry 100 Oxygen Delivery Method Room Air Room Air - Lab Data Lab results reviewed: Yes: I reviewed the patient's lab results. Lab Results 03/04/17 15:05: Lactic Acid 0.7 03/04/17 15:05: WBC 8.3, RBC 4.61, Hgb 13.6, Hct 41.5, MCV 90.1, MCH 29.6, MCHC 32.9, RDW 12.8, Plt Count 346, MPV 8.0, Neut % (Auto) 53.3, Lymph % (Auto) 37.0, [place] % (Auto) 3.2, Eos % (Auto) 5.5, Baso % (Auto) 1.0, Neut # (Auto) 4.4, Lymph # (Auto) 3.1, [place] # (Auto) 0.3, Eos # (Auto) 0.5 H, Baso # (Auto) 0.1 03/04/17 15:05: Sodium 138, Potassium 4.4, Chloride 103, Carbon Dioxide 30, Anion Gap 9.4, BUN 8, Creatinine 0.82, Estimated Creat Clear 123, Estimated GFR 78, Est GFR ( Amer) 94, Glucose 89, Calcium 8.8, Total Bilirubin 0.2, AST 23 D, ALT 34 D, Alkaline Phosphatase 83, Total Protein 7.3, Albumin 3.7, Globulin 3.6 H, Albumin/Globulin Ratio 1.0 L Result diagrams: 03/04/17 15:05 03/04/17 15:05 Orders (Tests/Meds): ED MEDICATIONS Discontinued Medications Generic Name Dose Route Start Last Admin Trade Name Freq PRN Reason Stop Dose Admin Morphine Sulfate 4 mg 03/04/17 15:02 03/04/17 16:00 Morphine 4mg/Ml Syringe IV 03/04/17 15:03 4 mg ONCE ONE Administration Morphine Sulfate 5 mg 03/04/17 15:38 03/04/17 16:01 Morphine 5mg/Ml Syringe IV 03/04/17 15:39 Not Given ONCE ONE Ondansetron HCl 4 mg 03/04/17 15:02 03/04/17 16:00 Zofran 4mg/2ml Vial IV 03/04/17 15:03 4 mg ONCE ONE Administration Ondansetron HCl 4 mg 03/04/17 15:38 03/04/17 16:02 Zofran 4mg/2ml Vial IV 03/04/17 15:39 Not Given ONCE ONE ORDERS Category Date Time Status Blood Culture Stat Micro 03/04/17 15:05 Received - Dimitrios Inquiry Pt receiving controlled substance: Yes Dimitrios was queried for this patient: No Reason not queried -: Hospital network issues Risks and benefits of using a controlled substance: were discussed with pt by me - Reevaluation(s) Time: 15:20 Reevaluation #1: The patient is in mild distress, otherwise medically stable. Instructed patient to follow-up with general surgeon as previously scheduled. Abdominal Pain HPI - General Chief Complaint: Abdominal Pain Stated Complaint: pain lower abdomen surgery [id number] Time Seen by Provider: 03/04/17 14:46 Mode of Arrival: Ambulatory Source of Information: Patient Limitati
--- NOTE | 2017-03-04 15:37 | ED_ITS ---
ED Disposition Clinical Impression: Postoperative abdominal pain, Seroma after procedure Disposition: Home, Self-Care Condition on Discharge: Good Instructions: How to Care for a Surgical Wound Prescriptions: Hydrocod/Acet 5/325 mg [[place] 5/325mg tablet] 1 - 2 tab PO Q6HP PRN #25 tab PRN Reason: Moderate Pain cephALEXin [Keflex 500mg Cap] 500 mg PO QID #28 cap Etodolac [Etodolac 200mg Cap] 200 mg PO TID PRN #30 cap PRN Reason: Moderate Pain Hydrocodone/Acetaminophen [Lortab 10/325mg tablet] 1 tab PO BID #4 tab Referrals: Brady Reddy MD [Primary Care Provider] - Time of Disposition: 15:35 - Critical Care Critical Care Time: No Attestation: On 03/04/17, the high probability of a clinically significant, sudden or life threatening deterioration of the following system(s) required my full and direct attention, intervention and personal management. The time I documented below is in addition to time spent performing reported procedures but includes the following listed in this critical care notation. Medical Decision Making - Medical Records Medical records reviewed: Yes: I reviewed the patient's medical records. Vital Signs: 03/04/17 14:47 03/04/17 16:10 Temperature 98.8 F 98.1 F Temperature Source Temporal Artery Scan Oral Pulse Rate 80 Pulse Rate [Brachial] 84 Respiratory Rate 20 16 Blood Pressure 130/72 Blood Pressure [Right Arm] 134/91 Blood Pressure Mean [Right Arm] 105 Blood Pressure Source Automatic Cuff Blood Pressure Source [Right Arm] Automatic Cuff Blood Pressure Position [Right Arm] Sitting 02 Sat by Pulse Oximetry 100 Oxygen Delivery Method Room Air Room Air - Lab Data Lab results reviewed: Yes: I reviewed the patient's lab results. Lab Results 03/04/17 15:05: Lactic Acid 0.7 03/04/17 15:05: WBC 8.3, RBC 4.61, Hgb 13.6, Hct 41.5, MCV 90.1, MCH 29.6, MCHC 32.9, RDW 12.8, Plt Count 346, MPV 8.0, Neut % (Auto) 53.3, Lymph % (Auto) 37.0 , [place] % (Auto) 3.2, Eos % (Auto) 5.5, Baso % (Auto) 1.0, Neut # (Auto) 4.4, Lymph # (Auto) 3.1, [place] # (Auto) 0.3, Eos # (Auto) 0.5 H, Baso # (Auto) 0.1 03/04/17 15:05: Sodium 138, Potassium 4.4, Chloride 103, Carbon Dioxide 30, Anion Gap 9.4, BUN 8, Creatinine 0.82, Estimated Creat Clear 123, Estimated GFR 78, Est GFR ( Amer) 94, Glucose 89, Calcium 8.8, Total Bilirubin 0.2, AST 23 D, ALT 34 D, Alkaline Phosphatase 83, Total Protein 7.3, Albumin 3.7, Globulin 3.6 H, Albumin/Globulin Ratio 1.0 L Result diagrams: 03/04/17 15:05 03/04/17 15:05 Orders (Tests/Meds): ED MEDICATIONS Discontinued Medications Generic Name Dose Route Start Last Admin Trade Name Freq PRN Reason Stop Dose Admin Morphine Sulfate 4 mg 03/04/17 15:02 03/04/17 16:00 Morphine 4mg/Ml Syringe IV 03/04/17 15:03 4 mg ONCE ONE Administration Morphine Sulfate 5 mg 03/04/17 15:38 03/04/17 16:01 Morphine 5mg/Ml Syringe IV 03/04/17 15:39 Not Given ONCE ONE Ondansetron HCl 4 mg 03/04/17 15:02 03/04/17 16:00 Zofran 4mg/2ml Vial IV 03/04/17 15:03 4 mg ONCE ONE Administration Ondansetron HCl 4 mg 03/04/17 15:38 03/04/17 16:02 Zofran 4mg/2ml Vial IV 03/04/17 15:39 Not Given ONCE ONE ORDERS Category Date Time Status Blood Culture Stat Micro 03/04/17 15:05 Received
[2017-03-04 15:44] LABS: Alanine Aminotransferase 34 U/L (12-78); Albumin Level 3.7 gm/dL (3.4-5.0); Alkaline Phosphatase 83 U/L (46-116); Anion Gap 9.4 mEq/L (5-15); Aspartate Amino Transferase 23 U/L (15-37); Bilirubin,Total 0.2 mg/dL (0.2-1.0); Blood Urea Nitrogen 8 mg/dL (7-18); Calcium 8.8 mg/dL (8.5-10.1); Carbon Dioxide 30 mmol/L (21.0-32.0); Chloride 103 mmol/L (98-107); Creatinine Clearance Estimated 123 mL/min (0-300); Creatinine,Serum 0.82 mg/dL (0.55-1.02); Estimated Glomerular Filt Rate 78 ml/min (>60); GFR (African American) 94 ML/MIN (>60); Globulin 3.6 gm/dl (1.3-3.2); Glucose 89 mg/dL (74-106); Potassium 4.4 mmoL/L (3.5-5.1); Sodium 138 mmol/L (136-145); Total Protein,Serum 7.3 gm/dL (6.4-8.2)
[2017-03-04 15:47] LABS: Lactic Acid 0.7 mmol/L (0.4-2.0)
[2017-03-04 16:10] VITALS: BP 130/72; PULSE 80; RESP 16; TEMP 36.7
== END 2017-03-04 16:12 | disposition home or self-care (01) ==
PROVIDERS: Emergency Provider Emergency Medicine; Family Provider Emergency Medicine; PCP Emergency Medicine
DX: K91.872 Postprocedural seroma of a digestive system organ or structure following a digestive system procedure (principal); I10 Essential (primary) hypertension; Z79.899 Other long term (current) drug therapy; Z88.2 Allergy status to sulfonamides; F17.210 Nicotine dependence, cigarettes, uncomplicated
CPT/HCPCS: 80053; 83605; 85025; 87040; 87070; 87077; 87186; 87205; 96374; 96375; 99283; J2405

== ENCOUNTER 2017-03-06 19:54 | Emergency (ER) | payer OTHER, SELFPAY ==
[2017-03-06 19:55] VITALS: BP 102/81; PULSE 155; RESP 16; TEMP 38.4; O2SAT 87; BMI 29.0
[2017-03-06 19:56] VITALS: BMI 29.0
[2017-03-06 20:37] LABS: Adenovirus F 40/41, stool Not Detected (NotDetected); Astrovirus Not Detected (NotDetected); Campylobacter Not Detected (NotDetected); Clostridium Difficile A/B, PCR Not Detected (NotDetected); Cryptosporidium Not Detected (NotDetected); Cyclospora Cayetanesis Not Detected (NotDetected); Entamoeba histolytica Not Detected (NotDetected); Enteroaggregative E coli Not Detected (NotDetected); Enteropathogenic E coli Not Detected (NotDetected); Enterotoxigenic E coli Not Detected (NotDetected); Giardia lamblia Not Detected (NotDetected); Norovirus Not Detected (NotDetected); Plesimonas Shigalloides, PCR Not Detected (NotDetected); Rotavirus A Not Detected (NotDetected); Salmonella, PCR Not Detected (NotDetected); Sapovirus Not Detected (NotDetected); Shiga-like toxin E coli Not Detected (NotDetected); Shigella Enterovasive E coli Not Detected (NotDetected); Vibrio Cholerae Not Detected (NotDetected); Vibrio, PCR Not Detected (NotDetected); Yersinia Entercolitica, PCR Not Detected (NotDetected)
[2017-03-06 20:40] LABS: Basophils # 0.1 K/mm3 (0-0.2); Basophils % 0.5 % (0.1-2.0); Eosinophils # 0.2 K/mm3 (0.0-0.4); Eosinophils % 0.9 % (0.1-12.0); Hematocrit 43.9 % (37.0-47.0); Hemoglobin 14.5 g/dL (12.2-16.2); Lymphocytes # 0.6 K/mm3 (0.7-4.5); Lymphocytes % 2.6 K/mm3 (10-50); Mean Corpuscular HGB Conc 33.1 g/dL (31.8-35.4); Mean Corpuscular Hemoglobin 29.8 pg (27.0-31.2); Mean Platelet Volume 10.3 fl (7.4-10.4); Monocytes # 0.5 K/mm3 (0.1-1.0); Monocytes % 1.9 % (1.7-9.3); Neutrophils # 23.7 K/mm3 (1.8-7.8); Neutrophils % 94.2 % (37.0-80.0); Platelet Count 280 K/mm3 (142-424); Red Blood Count 4.88 M/mm3 (4.20-5.40); Red Cell Distribution Width 13.1 % (11.5-17.5); White Blood Count 25.1 K/mm3 (4.8-10.8)
--- NOTE | 2017-03-06 20:44 | HMH.EDGENADL ---
ED Disposition Clinical Impression: Severe sepsis Acute renal failure Qualifiers: Acute renal failure type: unspecified Qualified Code(s): N17.9 - Acute kidney failure, unspecified Disposition: Xfer Short-Term Hosp Condition on Discharge: Critical Referrals: Brady Reddy MD [Primary Care Provider] - Forms: Transfer Record - ED - Critical Care Critical Care Time: Yes Attestation: On 03/06/17, the high probability of a clinically significant, sudden or life threatening deterioration of the following system(s) required my full and direct attention, intervention and personal management. The time I documented below is in addition to time spent performing reported procedures but includes the following listed in this critical care notation. Total Critical Care Time: 60 Vital system(s) involved:: Renal Failure, Shock (Septic) My critical care processes included: Assessment & monitoring of V/S, Initial and Re-exams, Data Review/Interpretation, Coordinating Care, Medication Orders and management, Documentation Medical Decision Making Vital Signs: 03/06/17 19:55 03/06/17 21:55 03/06/17 23:26 Temperature 101.2 F H Temperature Source Oral Pulse Rate Pulse Rate [Right Brachial] 155 H 133 H 126 H Respiratory Rate 16 22 18 Blood Pressure Blood Pressure [Right Arm] 102/81 97/52 78/42 Blood Pressure Mean [Right Arm] 88 67 54 Blood Pressure Source [Right Arm] Automatic Cuff Automatic Cuff Automatic Cuff Blood Pressure Position [Right Arm] Supine Supine Supine 02 Sat by Pulse Oximetry 87 L 92 L Oxygen Delivery Method Room Air Nasal Cannula Oxygen Flow Rate (LPM) 2 03/06/17 23:49 03/07/17 00:19 Temperature 98 F Temperature Source Pulse Rate 118 H Pulse Rate [Right Brachial] Respiratory Rate 24 Blood Pressure 70/39 Blood Pressure [Right Arm] 84/52 Blood Pressure Mean [Right Arm] 62 Blood Pressure Source [Right Arm] Automatic Cuff Blood Pressure Position [Right Arm] Supine 02 Sat by Pulse Oximetry Oxygen Delivery Method Nasal Cannula Oxygen Flow Rate (LPM) 2 - Lab Data Lab Results 03/06/17 20:25: WBC 25.1 H* D, RBC 4.88, Hgb 14.5, Hct 43.9, MCV 90.0, MCH 29.8, MCHC 33.1, RDW 13.1, Plt Count 280, MPV 10.3, Neut % (Auto) 94.2 H, Lymph % (Auto) 2.6 L, [place] % (Auto) 1.9, Eos % (Auto) 0.9, Baso % (Auto) 0.5, Neut # (Auto) 23.7 H, Lymph # (Auto) 0.6 L, [place] # (Auto) 0.5, Eos # (Auto) 0.2, Baso # (Auto) 0.1, Total Counted 100, Neutrophils % (Manual) 60, Band Neutrophils % 7.0, Lymphocytes % (Manual) 8 L, Monocytes % (Manual) 19 H, Metamyelocytes % 6.0 H, Platelet Estimate Normal, RBC Morphology Normal 03/06/17 20:25: Sodium 132 L, Potassium 4.1, Chloride 94 L, Carbon Dioxide 21 D, Anion Gap 21.1 H, BUN 41 H D, Creatinine 6.33 H D, Estimated Creat Clear 16, Estimated GFR 7 L*, Est GFR ( Amer) 9 L* D, Glucose 126 H, Calcium 9.1, Total Bilirubin 1.7 H, AST 163 H D, ALT 168 H D, Alkaline Phosphatase 115, Total Protein 6.9, Albumin 2.9 L, Globulin 4.0 H, Albumin/Globulin Ratio 0.7 L 03/06/17 20:25: Lactic Acid 5.7 H 03/06/17 20:35: Stl Aeromonas (PCR) Not detected, Stl C. cayetanensis PCR Not detected, Stool Rotavirus (PCR) Not detected, Stl Adenov F 40/41 PCR Not detected, Stool Astrovirus (PCR) Not detected, Stool Cryptosporidium PCR Not detected, Stl E.coli Shiga Tox PCR Not detected, Stool E coli O157 PCR Not detected, Stl Enterotoxigenic E PCR Not detected, Stool EPEC (PCR) Not detected, Stool EAEC (PCR) Not detected, Stl E. histolytica PCR Not detected, Stool Giardia Lamblia PCR Not detected, Stool Sapovirus (PCR) Not detected, Stl P. shigelloides PCR Not detected, Stl Shigella/EIEC PCR Not detected, St Y.enterocolitica PCR Not detected, Stool Vibrio (PCR) Not detected, Stl Vibrio cholerae PCR Not detected, Stl Norovirus GI/GII PCR Not detected, Campylobacter (PCR) Not detected, C. difficile (PCR) Not detected, Salmonella (PCR) Not detected 03/06/17 21:25: Urine Color Yellow, Urine Appearance Clou
--- NOTE | 2017-03-06 20:52 | XR_ITS ---
XR chest portable Ordering Physician: Curtis Smith MD Patient Age: 36 years: Female HISTORY: ITS.REASON: feverrecent surgery left lower quadrant pain TECHNIQUE: AP portable upright CXR COMPARISON :No previous chest film. There is a T abdomen which includes lung bases from today, also utilized. FINDINGS . Lungs appear well expanded and clear no significant acute findings. Heart branden and mediastinal structures satisfactory. . Normal pulmonary vascularity. ad operations specialist leads are in place. Chest wall unremarkable. Mild accentuation markings towards right lung base versus left most likely reflecting atelectasis. Doubt infiltrate. Mild atelectasis at the right lung base on the chest film as well as confirmed on subsequent CT from same day performed shortly thereafter. No focal pneumonia evident here on the CT but no effusions. No pneumothorax chest wall unremarkable IMPRESSION: --------- . No pneumonia evident. Mild right basilar atelectasis- accounts for the slight increased markings at right lung base. ( Subsequent CT from today support such. & speaks against associated pneumonia here)
[2017-03-06 21:00] LABS: Lactic Acid 5.7 mmol/L (0.4-2.0)
[2017-03-06 21:03] LABS: Reflex Lactic Add Lactic Reflex
[2017-03-06 21:05] LABS: MANUAL DIFFERENTIAL MANUAL DIFFERENTIAL (MANUAL DIFF)
[2017-03-06 21:11] LABS: Alanine Aminotransferase 168 U/L (12-78); Albumin Level 2.9 gm/dL (3.4-5.0); Albumin/Globulin Ratio 0.7 (1.1-1.8); Alkaline Phosphatase 115 U/L (46-116); Anion Gap 21.1 mEq/L (5-15); Aspartate Amino Transferase 163 U/L (15-37); Bilirubin,Total 1.7 mg/dL (0.2-1.0); Blood Urea Nitrogen 41 mg/dL (7-18); Calcium 9.1 mg/dL (8.5-10.1); Carbon Dioxide 21 mmol/L (21.0-32.0); Chloride 94 mmol/L (98-107); Creatinine Clearance Estimated 16 mL/min (0-300); Estimated Glomerular Filt Rate 7 ml/min (>60); GFR (African American) 9 ML/MIN (>60); Glucose 126 mg/dL (74-106); Potassium 4.1 mmoL/L (3.5-5.1); Sodium 132 mmol/L (136-145); Total Protein,Serum 6.9 gm/dL (6.4-8.2)
[2017-03-06 21:12] LABS: Creatinine,Serum 6.33 mg/dL (0.55-1.02)
--- NOTE | 2017-03-06 21:14 | PC.NURSE ---
Addendum entered by Idalia Rouse, EMT 03/06/17 21:15: Original Note: dr barajas advised of lactic 5.7 and wbc 25.7
[2017-03-06 21:38] LABS: Microscopic, Urine URINE MICROSCOPIC (MICROSCOPIC)
[2017-03-06 21:38] LABS: Adenovirus,PCR Not Detected (NotDetected); Bordetella Pertussis Not Detected (NotDetected); Chlamydophila Pneumoniae, PCR Not Detected (NotDetected); Coronavirus 229E Not Detected (NotDetected); Coronavirus NL63 Not Detected (NotDetected); Coronavirus OC43 Not Detected (NotDetected); Coronovirus HKU1,PCR Not Detected (NotDetected); Human Metapneumovirus Not Detected (NotDetected); Influenza A, PCR Not Detected (NotDetected); Influenza AH1, 2009 Not Detected (NotDetected); Influenza AH1, PCR Not Detected (NotDetected); Influenza AH3,PCR Not Detected (NotDetected); Influenza B, PCR Not Detected (NotDetected); Mycoplasma Pneumoniae, PCR Not Detected (NotDected); Parainfluenza 1, PCR Not Detected (NotDetected); Parainfluenza 2, PCR Not Detected (NotDetected); Parainfluenza 3, PCR Not Detected (NotDetected); Parainfluenza 4, PCR Not Detected (NotDetected); Respiratory Syncytial Virus Not Detected (NotDetected); Rhinovirus/Enterovirus Not Detected (NotDetected)
[2017-03-06 21:47] LABS: Appearance,Urine CLOUDY (Clear); Blood, Urine MODERATE (Negative); Color,Urine YELLOW (Yellow); Glucose,Urine (UA) Negative (Negative); Ketones,Urine TRACE (Negative); Leukocyte Esterase,Urine TRACE (Negative); Nitrate,Urine POSITIVE (Negative); PH,Urine 5.5 (5.0-8.5); Protein,Urine 100 (Negative); Urobilinogen,Urine 0.2 EU/dl (0.2)
--- NOTE | 2017-03-06 21:47 | PC.NURSE ---
PHARMACY PAGED FOR VANC DOSING. SPOKE WITH [facility] AND HE RECOMMENDS VANCOMYCIN 1500 MG IV X 1 DOSE AND TO ORDER A RANDOM VANC CONCENTRATION ON 03/08/2017 AT 1100
[2017-03-06 21:49] LABS: Strep Scrn Group A (Rapid) Negative (Negative)
[2017-03-06 21:55] VITALS: BP 97/52; PULSE 133; RESP 22
[2017-03-06 22:07] LABS: Amorphous Sediment,Urine 2+ /lpf; Bacteria,Urine 3+ /lpf; Bilirubin,Urine 2+ (Negative); RBC,Urine Occasional #/hpf (0-3)
[2017-03-06 22:14] LABS: Lymphocytes % 8 % (10-50); Monocytes % 19 % (2-9); Neutrophils % 60 % (42-76); Total Cells Counted 100
[2017-03-06 22:15] LABS: Platelet Estimate Normal; RBC Morphology Normal
--- NOTE | 2017-03-06 22:18 | CT_ITS ---
CT abdomen pelvis wo con Ordering Physician: Curtis Smith MD Patient Age: 36 years: Female HISTORY: ITS.REASON: post op abdo pain, fever . Hernia repair and bowel resection last week. TECHNIQUE: Helical CT scanning performed through abdomen pelvis with no oral nor IV contrast utilized. Sagittal and coronal reconstructions on CT workstation. COMPARISON :03/04/2017 CT abdomen pelvis. numerous other prior CT abdomen pelvis studies: January 15, 2017, September 29, 2016, August 2014, December 2013 and September 2013 along with multiple pelvic ultrasound in 2015 and 2013 FINDINGS Postsurgical changes left lower quadrant.. Irregular Fluid collection overlies abdominal wall surgical incision site.. This may reflect a seroma or hematoma and measures roughly 8 cm transverse 5 cm height and up to 2.5 cm AP. Since previous this fluid collection is slightly larger most notable are the extensive inflammatory changes in the subcutaneous fat surrounding this area and along incision. Wound defect evident with some stippled air or along the course of wound extending to this fluid collection. Possible developing abscess. Follow-up postcontrast studies may be of benefit Postsurgical changes in the small bowel deep to this area at left lower quadrant are again noted. Likely a [id number] anastomosis accounting for the slight dilatation in the region of the anastomosis. Otherwise on comparison generous fluid in small bowel with borderline distention proximal small bowel which may reflect mild ileus. Liquid stool is seen throughout the colon as well suggesting on diarrhea possibly enteritis. . Lung bases are clear heart normal size Abdomen/pelvis. Lack of oral and IV contrast decreases sensitivity and delineation of features particularly in the setting of inflammation Liver diffuse fatty changes. & Pancreas unremarkable with No focal lesions on this noncontrast study Plump left adrenal appears stable/upper normal kidneys. No urinary tract calculi nor obstruction. No retroperitoneal adenopathy. Aorta unremarkable Pelvis. Hazel catheter in place. IMPRESSION: 1. Significant additional inflammatory changes LLQ, at & overlying the incision and abdominal wall/... As inflammatory changes are seen throughout subcutaneous fat LLQ surrounding previously noted inflammatory fluid collection here.. Findings suggestive of developing infection .. Clinical correlation The previously noted Focal fluid collection overlying the incision is slightly large today r with more irregular inflamed appearing margins.. This was Previously suspected Seroma/hematoma but may reflect developing inflammatory fluid collection at this point . Also Additional air is now seen within the wound with a few dots of air overlying or leading to the fluid collection 2. Liquid stool throughout colon. With mildly distended fluid-filled small bowel...-. Suggestive of enteritis & diarrhea ( & less likely merely postoperative ileus.) Clinical correlation required 3.. Postsurgical changes small bowel left lower quadran again noted t.
--- NOTE | 2017-03-06 22:33 | PC.NURSE ---
TO RADIOLOGY PER STRETCHER FOR CT ABD/PELVIS
--- NOTE | 2017-03-06 23:24 | PC.NURSE ---
AND DR. BURGOS NOTIFIED.
--- NOTE | 2017-03-06 23:24 | PC.NURSE ---
ON PHONE WITH
[2017-03-06 23:26] VITALS: BP 78/42; PULSE 126; RESP 18; O2SAT 92
--- NOTE | 2017-03-06 23:37 | PC.NURSE ---
DR SCHAEFER SPEAKING WITH [facility]
[2017-03-06 23:49] VITALS: BP 70/39; PULSE 118; RESP 24; TEMP 36.6
[2017-03-07 00:19] VITALS: BP 84/52
[2017-03-07 00:23] VITALS: BP 96/76; PULSE 118; RESP 16; O2SAT 97
--- NOTE | 2017-03-07 00:40 | PC.NURSE ---
TRANSFERRED TO [facility] PER [employer].
[2017-03-07 00:41] VITALS: BP 100/60; PULSE 112; RESP 20; O2SAT 97
--- NOTE | 2017-03-07 00:45 | PC.NURSE ---
UPON TRANSFER PATIENT ON LEVOPHED AT 16 MCG/MIN
== END 2017-03-07 00:45 | disposition short-term general hospital (02) ==
PROVIDERS: Emergency Provider Emergency Medicine; Family Provider Emergency Medicine; PCP Emergency Medicine
DX: A41.9 Sepsis, unspecified organism (principal); N17.9 Acute kidney failure, unspecified; R65.21 Severe sepsis with septic shock; Z90.49 Acquired absence of other specified parts of digestive tract; Z79.899 Other long term (current) drug therapy; Z87.442 Personal history of urinary calculi; Z90.710 Acquired absence of both cervix and uterus; F17.210 Nicotine dependence, cigarettes, uncomplicated
CPT/HCPCS: 71045; 74176; 80053; 81001; 83605; 85007; 85025; 87040; 87070; 87077; 87086; 87186; 87205; 87430; 87486; 87507; 87581; 87633; 87798; 96361; 96365; 96367; 96375; 99285; J2405; J2543; J3370

== ENCOUNTER → 2017-09-15 14:40 | Outpatient (REF) | payer OTHER, SELFPAY ==
[2017-09-15 18:35] LABS: Basophils % 0.4 % (0.1-2.0); Eosinophils # 0.2 K/mm3 (0.0-0.4); Eosinophils % 2.9 % (0.1-12.0); Hematocrit 43.5 % (37.0-47.0); Hemoglobin 14.4 g/dL (12.2-16.2); Lymphocytes # 2.5 K/mm3 (0.7-4.5); Lymphocytes % 33.1 K/mm3 (10-50); Mean Corpuscular HGB Conc 33.1 g/dL (31.8-35.4); Mean Corpuscular Hemoglobin 29.6 pg (27.0-31.2); Mean Corpuscular Volume 89.3 fl (81-99); Mean Platelet Volume 8.7 fl (7.4-10.4); Monocytes # 0.3 K/mm3 (0.1-1.0); Neutrophils # 4.5 K/mm3 (1.8-7.8); Neutrophils % 59.7 % (37.0-80.0); Platelet Count 346 K/mm3 (142-424); Red Blood Count 4.87 M/mm3 (4.20-5.40); Red Cell Distribution Width 13.3 % (11.5-17.5); White Blood Count 7.5 K/mm3 (4.8-10.8)
[2017-09-15 19:31] LABS: Hemoglobin A1C 5.7 % (0.0-7.0)
[2017-09-15 19:43] LABS: Alanine Aminotransferase 52 U/L (12-78); Albumin Level 3.8 gm/dL (3.4-5.0); Albumin/Globulin Ratio 1.2 (1.1-1.8); Alkaline Phosphatase 112 U/L (46-116); Anion Gap 13.6 mEq/L (5-15); Aspartate Amino Transferase 27 U/L (15-37); Bilirubin,Total 0.3 mg/dL (0.2-1.0); Blood Urea Nitrogen 12 mg/dL (7-18); Calcium 9.5 mg/dL (8.5-10.1); Carbon Dioxide 25 mmol/L (21.0-32.0); Chloride 108 mmol/L (98-107); Chol/HDL Ratio 4.9 (1-3.5); Cholesterol 162 mg/dL (140-200); Estimated Glomerular Filt Rate 70 ml/min (>60); GFR (African American) 84 ML/MIN (>60); Globulin 3.3 gm/dl (1.3-3.2); Glucose 100 mg/dL (74-106); HDL Cholesterol 33 mg/dL (29-89); LDL Cholesterol 85 mg/dL (0-130); Potassium 4.6 mmoL/L (3.5-5.1); Sodium 142 mmol/L (136-145); T4 (Thyroxine) 4.8 ug/dl (4.7-13.3); Thyroid Stimulating Hormone 1.17 uIU/ml (0.358-3.740); Total Protein,Serum 7.1 gm/dL (6.4-8.2); Triglycerides 219 mg/dL (30-200); VLDL Cholesterol 44 mg/dL (0-40)
[2017-09-17 16:42] LABS: Vitamin D 25 Hydroxy 37.8 ng/mL (30.0-100.0)
== END ==
LOC: LAB 14:40
PROVIDERS: Visit Provider Nurse Practitioner Family
DX: R73.9 Hyperglycemia, unspecified (principal); T14.8XXA Other injury of unspecified body region, initial encounter
CPT/HCPCS: 80053; 80061; 82652; 83036; 84436; 84443; 85025; 87070; 87077; 87186; 87205

== ENCOUNTER → 2017-10-02 12:11 | Outpatient (REF) | payer OTHER, SELFPAY ==
[2017-10-02 14:50] LABS: Amphetamine/Metha Screen,Urine Negative ng/mL (<1000); Barbiturates Screen,Urine Negative ng/mL (<200); Benzodiazepines Screen,Urine Negative ng/mL (<200); Cannabinoid Screen,Urine Negative ng/mL (<50); Cocaine Screen,Urine Negative ng/mL (<300); Methadone Screen,Urine Negative ng/mL (<300); Opiate Screen,Urine Negative ng/mL (<300); Phencyclidine Screen,Urine Negative ng/mL (<25)
== END ==
LOC: LAB 12:11
PROVIDERS: Visit Provider Nurse Practitioner Family
DX: F41.9 Anxiety disorder, unspecified (principal); Z79.899 Other long term (current) drug therapy
CPT/HCPCS: 80305

== ENCOUNTER → 2017-10-30 09:32 | Outpatient (CLI) | payer OTHER, SELFPAY ==
--- NOTE | 2017-10-30 10:39 | XR_ITS ---
XR foot RT min 3V HISTORY: Right heel pain ITS.REASON: pain ORDERING PHYSICIAN: Vickie Oconnor PATIENT AGE: 37 years COMPARISON: None FINDINGS: No fracture or dislocation. No lytic or blastic change. There is normal mineralization.. The joint spaces are well-preserved. No significant degenerative/arthritic changes. No erosive changes evident. A 7 mm calcaneal spur without erosive change IMPRESSION: Calcaneal spur otherwise negative
--- NOTE | 2017-10-30 10:39 | XR_ITS ---
XR foot LT min 3V HISTORY: Heel pain ITS.REASON: pain ORDERING PHYSICIAN: Vickie Oconnor PATIENT AGE: 37 years COMPARISON: None FINDINGS: No fracture or dislocation. No lytic or blastic change. There is normal mineralization.. The joint spaces are well-preserved. No significant degenerative/arthritic changes. No erosive changes evident. 6 mm calcaneal spur without erosive change IMPRESSION: Calcaneal spur otherwise negative
[2017-10-30 18:39] LABS: Amphetamine/Metha Screen,Urine Negative ng/mL (<1000); Barbiturates Screen,Urine Negative ng/mL (<200); Benzodiazepines Screen,Urine Negative ng/mL (<200); Cannabinoid Screen,Urine Negative ng/mL (<50); Cocaine Screen,Urine Negative ng/mL (<300); Methadone Screen,Urine Negative ng/mL (<300); Opiate Screen,Urine Positive ng/mL (<300); Phencyclidine Screen,Urine Negative ng/mL (<25)
== END ==
PROVIDERS: PCP Nurse Practitioner Family; Visit Provider Nurse Practitioner Family
DX: Z79.899 Other long term (current) drug therapy (principal); M79.673 Pain in unspecified foot
CPT/HCPCS: 73630; 80305

== ENCOUNTER → 2017-11-03 16:01 | Outpatient (CLI) | payer OTHER, SELFPAY ==
--- NOTE | 2017-11-03 16:04 | XR_ITS ---
XR chest 2V HISTORY: ITS.REASON: cough ORDERING PHYSICIAN: Vickie Oconnor PATIENT AGE: 37 years COMPARISON: 03/06/2017 FINDINGS: The cardiomediastinal silhouette and pulmonary vascularity are within normal limits. The lungs are clear without infiltrates, suspicious nodules, or pleural effusions. No acute bony abnormalities. IMPRESSION: Negative chest, no acute finding
== END ==
PROVIDERS: PCP Emergency Medicine; Visit Provider Nurse Practitioner Family
DX: R05 Cough (principal); R06.02 Shortness of breath
CPT/HCPCS: 71046

== ENCOUNTER → 2017-12-21 13:56 | Outpatient (CLI) | payer OTHER, SELFPAY ==
[2017-12-21 15:20] LABS: Amphetamine/Metha Screen,Urine Negative ng/mL (<1000); Barbiturates Screen,Urine Negative ng/mL (<200); Benzodiazepines Screen,Urine Negative ng/mL (<200); Cannabinoid Screen,Urine Positive ng/mL (<50); Cocaine Screen,Urine Negative ng/mL (<300); Methadone Screen,Urine Negative ng/mL (<300); Opiate Screen,Urine Negative ng/mL (<300); Phencyclidine Screen,Urine Negative ng/mL (<25)
== END ==
PROVIDERS: PCP Emergency Medicine; Visit Provider Emergency Medicine
DX: Z79.899 Other long term (current) drug therapy (principal)
CPT/HCPCS: 80305

== ENCOUNTER → 2018-01-04 13:32 | Outpatient (CLI) | payer OTHER, SELFPAY ==
[2018-01-04 15:04] LABS: Amphetamine/Metha Screen,Urine Negative ng/mL (<1000); Barbiturates Screen,Urine Negative ng/mL (<200); Benzodiazepines Screen,Urine Negative ng/mL (<200); Cannabinoid Screen,Urine Positive ng/mL (<50); Cocaine Screen,Urine Negative ng/mL (<300); Methadone Screen,Urine Negative ng/mL (<300); Opiate Screen,Urine Negative ng/mL (<300); Phencyclidine Screen,Urine Negative ng/mL (<25)
== END ==
PROVIDERS: Visit Provider Emergency Medicine
DX: Z79.899 Other long term (current) drug therapy (principal)
CPT/HCPCS: 80305

== ENCOUNTER → 2018-04-05 13:29 | Outpatient (CLI) | payer OTHER, SELFPAY ==
[2018-04-05 14:30] LABS: Amphetamine/Metha Screen,Urine Negative ng/mL (<1000); Barbiturates Screen,Urine Negative ng/mL (<200); Benzodiazepines Screen,Urine Negative ng/mL (<200); Cannabinoid Screen,Urine Negative ng/mL (<50); Cocaine Screen,Urine Negative ng/mL (<300); Methadone Screen,Urine Negative ng/mL (<300); Opiate Screen,Urine Negative ng/mL (<300); Phencyclidine Screen,Urine Negative ng/mL (<25)
[2018-04-11 08:16] LABS: Alprazolam Negative (Cutoff=100); Benzodiazepines Negative ng/mL (Cutoff=100); Clonazepam Negative (Cutoff=100); Flurazepam Negative (Cutoff=100); Lorazepam Negative (Cutoff=100); Midazolam Negative (Cutoff=100); Temazepam Negative (Cutoff=100); Triazolam Negative (Cutoff=100)
== END ==
PROVIDERS: Visit Provider Emergency Medicine
DX: Z79.899 Other long term (current) drug therapy (principal); F41.9 Anxiety disorder, unspecified
CPT/HCPCS: 80305; 80346

== ENCOUNTER → 2018-04-12 08:38 | Outpatient (CLI) | payer OTHER, SELFPAY ==
--- NOTE | 2018-04-12 08:45 | US_ITS ---
US abdomen complete HISTORY: History of abdominal surgery, possible mass in the left lower quadrant ITS.REASON: questionable mass ORDERING PHYSICIAN: Brady Reddy MD PATIENT AGE: 37 years COMPARISON: None FINDINGS: Ultrasound performed of the left lower quadrant in the area of patient's previous surgery. There is a persistent isoechoic collection deep to the left lower quadrant scar measuring 5.4 x 4 cm. There are low level echoes within this region and some motion. Peristaltic motion however not present. This is just deep to the scar in the left lower quadrant. This could be related to an abscess or dilated a atonic bowel. IMPRESSION: 5 cm collection deep to the left lower quadrant scar which could be related to an abscess or atonic bowel. Suggest CT of the abdomen and pelvis with both IV and oral contrast for further evaluation.
== END ==
PROVIDERS: PCP Emergency Medicine; Visit Provider Emergency Medicine
DX: R22.9 Localized swelling, mass and lump, unspecified (principal)
CPT/HCPCS: 76700

== ENCOUNTER → 2018-04-13 16:29 | Outpatient (CLI) | payer OTHER, SELFPAY ==
--- NOTE | 2018-04-13 18:41 | CT_ITS ---
CT abdomen pelvis w con CLINICAL INDICATION: Left lower quadrant mass, abnormal ultrasound, left lower abdominal pain ITS.REASON: abscess vs atonic bowel ORDERING PHYSICIAN: MIRTHA Jones PATIENT AGE: 37 years COMPARISON: 03/06/2017, 04/12/2018 TECHNIQUE: Axial images obtained with sagittal and coronal reformats. All CT scans at the facility use one or more dose reduction, viz: automated exposure control, ma/kV adjustment per patient size (including targeted exams where dose is matched to indication, i.e. head), or iterative reconstruction technique. PROCEDURE: Oral Contrast: Redicat IV Contrast: 75 mL's Optiray 350. FINDINGS: No acute finding in the lower chest. Postcholecystectomy change. The liver, spleen, adrenal glands, pancreas, and kidneys have an unremarkable appearance. There is a tiny umbilical hernia containing fat. No evidence of appendicitis or diverticulitis. Recent ultrasound demonstrated possible fluid collection in the lower abdomen anteriorly on the left. There are postsurgical changes of the intra-abdominal wall at this region with scarring. A mildly dilated loop of small bowel is present at this area deep to the scarring with a suture line. Sonographic abnormality therefore is felt to have been due to an atonic loop of small bowel. No definite abscess. The small bowel is in contact with the anterior abdominal wall. This does raise the suspicion of possible adhesion in this area. No definite obstruction. There are posthysterectomy changes. No pelvic mass or abnormal fluid collection. No acute bony anomalies. IMPRESSION: 1. There are postsurgical changes of the lower abdominal wall anteriorly on the left with scarring and mild thickening of the subcutaneous fat. A mildly prominent small bowel loop is present in contact to the lower anterior abdominal wall at this region with a suture line representing an atonic or hypotonic loop of small bowel as seen on the ultrasound. No evidence of abscess. This loop of small bowel is in contact with the anterior abdominal wall raising the question of underlying adhesions. 2. Otherwise negative CT abdomen pelvis
== END ==
PROVIDERS: PCP Physician Assistant; Visit Provider Physician Assistant
DX: R19.04 Left lower quadrant abdominal swelling, mass and lump (principal)
CPT/HCPCS: 74177; Q9967